=== PATIENT | male | born 1950 | race Caucasian/White ===

== ENCOUNTER → 2016-09-02 | Outpatient (CLI) | payer OTHER ==
[~2016-09-02] MED LIST: /ESOM40CA; AMBI10TA; ASPI81TA83; CIPR500T89 PO; FLUT50SP; LYRI75CA; SOMA350T; TAMS0.4C PO; VESI10TA PO; VIAG100T PO; VICO5TAB16 PO; VITA500047 PO; ZEST20TA4 OR; ZOCO20TA PO; [UNRECOGNIZED DRUG - OTHER]
[2016-09-02 12:27] LABS: ALBUMIN 3.9 GM/DL (3.2-5.2); ALBUMIN/GLOBULIN RATIO 1.18 (1.00-1.93); ALKALINE PHOSPHATASE 80 U/L (45-117); ALT/SGPT 83 U/L (12-78); ANION GAP 10 MEQ/L (8-16); AST/SGOT 42 U/L (15-37); BILIRUBIN,TOTAL 0.4 MG/DL (0.2-1.0); BLOOD UREA NITROGEN 14 MG/DL (7-18); CARBON DIOXIDE LEVEL 29 MEQ/L (21-32); CHLORIDE LEVEL 100 MEQ/L (98-107); CHOLESTEROL LEVEL 209 MG/DL (<200); CREATININE FOR GFR 0.97 MG/DL (0.70-1.30); GLOMERULAR FILTRATION RATE > 60.0 (>49); GLUCOSE, FASTING 147 MG/DL (80-110); POTASSIUM SERUM 4.6 MEQ/L (3.5-5.1); SODIUM LEVEL 139 MEQ/L (136-145); TOTAL PROTEIN 7.2 GM/DL (6.4-8.2); TRIGLYCERIDES LEVEL 203 MG/DL (<150)
== END ==
LOC: M WUC 09:35
PROVIDERS: ATTEND Emergency Medicine
DX: E78.2 Mixed hyperlipidemia (principal); E11.9 Type 2 diabetes mellitus without complications; I10 Essential (primary) hypertension

== ENCOUNTER → 2016-09-21 | Outpatient (CLI) | payer OTHER ==
[~2016-09-21] VITALS: Ht 162.6 cm; Wt 90.7 kg
[~2016-09-21] MED LIST changes: +AMBI10TA PO; +CIAL5TAB PO; +DRIS50002 PO; +FLOM5CAP PO; +LIDOCAINE 2% INJ 100 MG/5 ML SDV (FOR ANES.) As Ordered ONE; +LISI10TA2 PO; +LISI20TA PO; +NS 1,000 ML IV SCH; +PROPOFOL 200 MG/20 ML VIAL As Ordered ONE
--- NOTE | 2016-09-21 10:54 | ROOR ---
Patient Name: Buster James Procedure Date: 09/21/2016 10:32 AM Date of : 1950 Age: 66 Room: [facility] Gender: Male Note Status: Finalized Procedure: Colonoscopy to Cecum + Cold Snare Polypectomy + Hemoclips Indications: Screening for colorectal malignant neoplasm Providers: Tyrel Renteria MD Referring MD: NANETTE HENRY MD Requesting Provider: Medicines: Monitored Anesthesia Care Complications: No immediate complications. Procedure: Pre-Anesthesia Assessment: - The heart rate, respiratory rate, oxygen saturations, blood pressure, adequacy of pulmonary ventilation, and response to care were monitored throughout the procedure. The Colonoscope was introduced through the anus and advanced to the cecum, identified by appendiceal orifice and ileocecal valve. The colonoscopy was performed without difficulty. The patient tolerated the procedure well. The quality of the bowel preparation was excellent. Findings: The perianal and digital rectal examinations were normal. Non-bleeding internal hemorrhoids were found during retroflexion. The hemorrhoids were small and Grade I (internal hemorrhoids that do not prolapse). Scattered small-mouthed diverticula were found in the recto-sigmoid colon, sigmoid colon and descending colon. Two sessile polyps were found in the transverse colon. The polyps were small in size. These polyps were removed with a cold snare. Resection and retrieval were complete. To prevent bleeding after the polypectomy, three hemostatic clips were successfully placed (MR conditional). There was no bleeding at the end of the procedure. The exam was otherwise without abnormality on direct and retroflexion views. Impression: - Non-bleeding internal hemorrhoids. - Diverticulosis in the recto-sigmoid colon, in the sigmoid colon and in the descending colon. - Two small polyps in the transverse colon, removed with a cold snare. Resected and retrieved. Clips (MR conditional) were placed. - The examination was otherwise normal on direct and retroflexion views. - The exam was otherwise normal to the cecum. Recommendation: - Patient has a contact number available for emergencies. The signs and symptoms of potential delayed complications were discussed with the patient. Return to normal activities tomorrow. Written discharge instructions were provided to the patient. - High fiber diet. - Discharge patient to home. - Continue present medications. - Await pathology results. - Telephone GI clinic for pathology results in 1 week. - Repeat colonoscopy for surveillance based on pathology results. - Return to referring physician. - The findings and recommendations were discussed with the patient's family. Tyrel Renteria MD Tyrel Renteria MD 09/21/2016 10:53:55 AM This report has been signed electronically. Number of Addenda: 0 Note Initiated On: 09/21/2016 10:32 AM Estimated Blood Loss: Estimated blood loss: none.
[2016-09-21 11:10] VITALS: BP 135/91
== END ==
LOC: M OPP 09:59
PROVIDERS: ATTEND Internal Medicine Gastroenterology
DX: Z12.11 Encounter for screening for malignant neoplasm of colon (principal); K64.0 First degree hemorrhoids; K57.30 Diverticulosis of large intestine without perforation or abscess without bleeding; D12.3 Benign neoplasm of transverse colon; I10 Essential (primary) hypertension; Z85.51 Personal history of malignant neoplasm of bladder; Z79.82 Long term (current) use of aspirin; Z79.899 Other long term (current) drug therapy; Z88.5 Allergy status to narcotic agent; Z91.040 Latex allergy status

== ENCOUNTER → 2016-11-15 | Outpatient (REF) | payer OTHER ==
[~2016-11-15] MED LIST changes: -LIDOCAINE 2% INJ 100 MG/5 ML SDV (FOR ANES.) As Ordered ONE; -NS 1,000 ML IV SCH; -PROPOFOL 200 MG/20 ML VIAL As Ordered ONE
== END ==
LOC: M SMT 12:55
PROVIDERS: ATTEND Urology
DX: Z85.51 Personal history of malignant neoplasm of bladder (principal)

== ENCOUNTER → 2016-11-18 | Outpatient (REF) | payer OTHER | LOC: M LAB REF 10:41 | PROVIDERS: ATTEND Emergency Medicine | DX: R19.7 Diarrhea, unspecified (principal) ==

== ENCOUNTER → 2017-03-10 | Outpatient (CLI) | payer OTHER ==
[2017-03-10 13:55] LABS: ALBUMIN 3.7 GM/DL (3.2-5.2); ALBUMIN/GLOBULIN RATIO 1.09 (1.00-1.93); ALKALINE PHOSPHATASE 71 U/L (45-117); ALT/SGPT 52 U/L (12-78); ANION GAP 9 MEQ/L (8-16); AST/SGOT 26 U/L (15-37); BILIRUBIN,TOTAL 0.4 MG/DL (0.2-1.0); BLOOD UREA NITROGEN 13 MG/DL (7-18); CALCIUM LEVEL 8.3 MG/DL (8.8-10.2); CARBON DIOXIDE LEVEL 27 MEQ/L (21-32); CHLORIDE LEVEL 104 MEQ/L (98-107); CHOLESTEROL LEVEL 180 MG/DL (<200); CREATININE FOR GFR 0.95 MG/DL (0.70-1.30); GLOMERULAR FILTRATION RATE > 60.0 (>49); GLUCOSE, FASTING 141 MG/DL (80-110); POTASSIUM SERUM 4.4 MEQ/L (3.5-5.1); SODIUM LEVEL 140 MEQ/L (136-145); TOTAL PROTEIN 7.1 GM/DL (6.4-8.2); TRIGLYCERIDES LEVEL 153 MG/DL (<150)
== END ==
LOC: M WUC 08:33
PROVIDERS: ATTEND Emergency Medicine
DX: E11.9 Type 2 diabetes mellitus without complications (principal); I10 Essential (primary) hypertension; E78.2 Mixed hyperlipidemia

== ENCOUNTER → 2017-05-16 | Outpatient (REF) | payer OTHER | LOC: M SMT 13:19 | PROVIDERS: ATTEND Urology | DX: Z85.51 Personal history of malignant neoplasm of bladder (principal) ==

== ENCOUNTER → 2017-05-16 | Outpatient (CLI) | payer OTHER | LOC: M SMT 11:05 | PROVIDERS: ATTEND Urology | DX: Z12.5 Encounter for screening for malignant neoplasm of prostate (principal) | CPT/HCPCS: 36415; G0103 ==

== ENCOUNTER → 2017-09-25 | Outpatient (CLI) | payer OTHER ==
[2017-09-25 13:59] LABS: ALBUMIN 4.1 GM/DL (3.2-5.2); ALBUMIN/GLOBULIN RATIO 1.11 (1.00-1.93); ALKALINE PHOSPHATASE 84 U/L (45-117); ALT/SGPT 56 U/L (12-78); ANION GAP 8 MEQ/L (8-16); AST/SGOT 30 U/L (7-37); BILIRUBIN,TOTAL 0.3 MG/DL (0.2-1.0); BLOOD UREA NITROGEN 13 MG/DL (7-18); CALCIUM LEVEL 8.9 MG/DL (8.8-10.2); CARBON DIOXIDE LEVEL 28 MEQ/L (21-32); CHLORIDE LEVEL 101 MEQ/L (98-107); CHOLESTEROL LEVEL 185 MG/DL (<200); CHOLESTEROL RISK RATIO 2.803 (<5); CREATININE FOR GFR 0.98 MG/DL (0.70-1.30); GLOMERULAR FILTRATION RATE > 60.0 (>49); GLUCOSE, FASTING 136 MG/DL (70-100); HDL CHOLESTEROL 66 MG/DL (>40); LDL CHOLESTEROL 86.6 MG/DL (<100); NON-HDL-C 119 MG/DL; POTASSIUM SERUM 4.5 MEQ/L (3.5-5.1); SODIUM LEVEL 137 MEQ/L (136-145); TOTAL PROTEIN 7.8 GM/DL (6.4-8.2); TRIGLYCERIDES LEVEL 162 MG/DL (<150)
[2017-09-25 14:09] LABS: MALB URINE SIEMENS 7.8 MG/L; MAU/CREAT RATIO 4.9 MCG/MG (0.0-30.0)
[2017-09-25 14:14] LABS: ESTIMATED AVERAGE GLUCOSE 128 MG/DL (60-110); HEMOGLOBIN A1c 6.1 %
[2017-09-25 14:39] LABS: TOTAL 25(OH) VITAMIN D 22.5 NG/ML (30.0-100.0)
== END ==
LOC: M SMT 09:36
DX: E11.9 Type 2 diabetes mellitus without complications (principal); I10 Essential (primary) hypertension; E78.2 Mixed hyperlipidemia
CPT/HCPCS: 80053

== ENCOUNTER → 2018-04-04 | Outpatient (CLI) | payer OTHER ==
[2018-04-04 15:08] LABS: ANION GAP 6 MEQ/L (8-16); BLOOD UREA NITROGEN 14 MG/DL (7-18); CALCIUM LEVEL 8.9 MG/DL (8.8-10.2); CARBON DIOXIDE LEVEL 29 MEQ/L (21-32); CHLORIDE LEVEL 103 MEQ/L (98-107); CHOLESTEROL LEVEL 173 MG/DL (<200); CHOLESTEROL RISK RATIO 3.326 (<5); GLOMERULAR FILTRATION RATE > 60.0 (>49); GLUCOSE, FASTING 120 MG/DL (70-100); HDL CHOLESTEROL 52 MG/DL (>40); LDL CHOLESTEROL 85 MG/DL (<100); NON-HDL-C 121 MG/DL; POTASSIUM SERUM 4.5 MEQ/L (3.5-5.1); SODIUM LEVEL 138 MEQ/L (136-145); TOTAL 25(OH) VITAMIN D 46.3 NG/ML (30.0-100.0); TRIGLYCERIDES LEVEL 182 MG/DL (<150)
[2018-04-04 16:41] LABS: ESTIMATED AVERAGE GLUCOSE 126 MG/DL (60-110)
== END ==
LOC: M SMT 09:01
DX: E55.9 Vitamin D deficiency, unspecified (principal); E78.2 Mixed hyperlipidemia; I10 Essential (primary) hypertension; E11.9 Type 2 diabetes mellitus without complications
CPT/HCPCS: 83036

== ENCOUNTER → 2018-05-08 | Outpatient (REF) | payer OTHER | LOC: M SMT 13:26 | DX: Z85.51 Personal history of malignant neoplasm of bladder (principal) ==

== ENCOUNTER → 2018-05-21 | Outpatient (CLI) | payer OTHER ==
[2018-05-21 13:54] LABS: PSA SCREENING 2.45 NG/ML (< 4.0)
== END ==
LOC: M SMT 08:44
DX: Z12.5 Encounter for screening for malignant neoplasm of prostate (principal)
CPT/HCPCS: G0103

== ENCOUNTER → 2018-09-28 | Outpatient (CLI) | payer MEDICARE, OTHER ==
[~2018-09-28] MED LIST changes: -DRIS50002 PO; +DRIS50003 PO; +FLOM0.4C39 PO; -FLOM5CAP PO
[2018-09-28 09:39] LABS: ALT/SGPT 61 U/L (12-78); BILIRUBIN,TOTAL 0.4 MG/DL (0.2-1.0); BLOOD UREA NITROGEN 17 MG/DL (7-18); CALCIUM LEVEL 8.9 MG/DL (8.8-10.2); CARBON DIOXIDE LEVEL 29 MEQ/L (21-32); CHLORIDE LEVEL 102 MEQ/L (98-107); CHOLESTEROL LEVEL 178 MG/DL (<200); CREATININE FOR GFR 1.06 MG/DL (0.70-1.30); GLOMERULAR FILTRATION RATE > 60.0 (>49); GLUCOSE, FASTING 152 MG/DL (70-100); HDL CHOLESTEROL 57 MG/DL (>40); POTASSIUM SERUM 4.3 MEQ/L (3.5-5.1); SODIUM LEVEL 138 MEQ/L (136-145); TRIGLYCERIDES LEVEL 175 MG/DL (<150)
[2018-09-28 09:40] LABS: ALBUMIN 3.8 GM/DL (3.2-5.2); CHOLESTEROL RISK RATIO 3.122 (<5); LDL CHOLESTEROL 86 MG/DL (<100); NON-HDL-C 121 MG/DL; TOTAL PROTEIN 7.1 GM/DL (6.4-8.2)
[2018-09-28 10:08] LABS: HEMOGLOBIN A1c 6.4 %
== END ==
LOC: M LAB 08:40
PROVIDERS: ATTEND Physician Assistant
DX: E11.69 Type 2 diabetes mellitus with other specified complication (principal)

== ENCOUNTER → 2019-04-29 | Outpatient (CLI) | payer MEDICARE ==
[~2019-04-29] MED LIST changes: -/ESOM40CA; +LISI10TA15 PO; -LISI10TA2 PO; -LISI20TA PO; +LISI20TA19 PO; +NEXI1CAP3
--- NOTE | 2019-04-29 13:41 | REP ---
ULTRASOUND ABDOMINAL AORTA: Real-time sonographic evaluation of the abdominal aorta performed. Study is somewhat limited due to patient body habitus. There is no sonographic evidence of abdominal aortic aneurysm. Maximum AP diameter of the proximal abdominal aorta is 2.2 cm, at the level of the renal artery is 1.5 cm, mid aspect 1.5 cm and distally 1.4 cm. Common iliac arteries are normal in caliber both measuring 1 cm in maximum AP dimension. IMPRESSION: No sonographic evidence of abdominal aortic aneurysm. Electronically Signed by Thien Estrada MD 04/29/2019 11:36 P
== END ==
LOC: M RAD 10:53
PROVIDERS: ATTEND Physician Assistant
DX: Z87.891 Personal history of nicotine dependence (principal)

== ENCOUNTER → 2019-04-30 | Outpatient (CLI) | payer MEDICARE ==
--- NOTE | 2019-04-30 09:38 | REP ---
CT chest without contrast: Low-dose screening exam. History: Personal history of nicotine dependence. Comparison chest x-ray is from July 21, 2015. No comparison chest CT. CT findings: There is minimal linear fibrosis in the right middle lobe and in the lingula. No significant pulmonary nodule is appreciated. No infiltrate is seen. Impression: Lung-RADS category 1 negative. Repeat screening exam suggested 1 year. Electronically Signed by Marquez Alvarado MD 04/30/2019 10:44 A
== END ==
LOC: M RAD 08:02
PROVIDERS: ATTEND Physician Assistant
DX: Z12.2 Encounter for screening for malignant neoplasm of respiratory organs (principal); Z87.891 Personal history of nicotine dependence; J84.10 Pulmonary fibrosis, unspecified

== ENCOUNTER → 2019-07-08 | Outpatient (REF) | payer MEDICARE | LOC: M SMT 19:11 | PROVIDERS: ATTEND Urology | DX: Z85.51 Personal history of malignant neoplasm of bladder (principal) ==

== ENCOUNTER → 2019-07-08 | Outpatient (REF) | payer MEDICARE | LOC: M SMT 12:42 | PROVIDERS: ATTEND Urology | DX: Z85.51 Personal history of malignant neoplasm of bladder (principal) ==

== ENCOUNTER → 2019-07-31 | Outpatient (CLI) | payer MEDICARE ==
[2019-07-31 13:59] LABS: HEMOGLOBIN 15.3 g/dl (13.5-17.5); MEAN CORPUSCULAR HEMOGLOBIN 31.5 pg (27.0-33.0); MEAN CORPUSCULAR HGB CONC 32.6 g/dl (32.0-36.5); MEAN CORPUSCULAR VOLUME 96.7 fl (80.0-96.0); PLATELET COUNT, AUTOMATED 205 10^3/uL (150-450); RED BLOOD COUNT 4.86 10^6/uL (4.30-6.10); WHITE BLOOD COUNT 12.7 10^3/uL (4.0-10.0)
[2019-07-31 14:21] LABS: BLOOD UREA NITROGEN 13 MG/DL (7-18); CALCIUM LEVEL 9.2 MG/DL (8.8-10.2); CARBON DIOXIDE LEVEL 31 MEQ/L (21-32); CHLORIDE LEVEL 100 MEQ/L (98-107); CREATININE FOR GFR 0.97 MG/DL (0.70-1.30); GLOMERULAR FILTRATION RATE > 60.0 (>49); GLUCOSE, FASTING 141 MG/DL (70-100); POTASSIUM SERUM 4.5 MEQ/L (3.5-5.1); SODIUM LEVEL 140 MEQ/L (136-145)
--- NOTE | 2019-08-01 11:22 | REPPI ---
Clinical: Bladder cancer. Preoperative assessment . Comparison: 07/21/2015 . Technique: PA and lateral. Findings: The mediastinum and cardiac silhouette are normal. The lung cannon are clear and without acute consolidation, effusion, or pneumothorax. The skeletal structures are intact and normal. Impression: 1. No acute cardiopulmonary process. Electronically Signed by Primitivo Parks MD 08/01/2019 05:31 A
== END ==
LOC: M PLALAB 09:47
PROVIDERS: ATTEND Urology
DX: C67.9 Malignant neoplasm of bladder, unspecified (principal)

== ENCOUNTER 2019-08-16 13:42 | Day surgery (SDC) | payer MEDICARE ==
[~2019-08-16] VITALS: Ht 162.6 cm; Wt 91.1 kg
[~2019-08-16 13:42] MED LIST changes: +ACETAMINOPHEN 1000MG 100ML IV BTL (OFIRMEV) (J0131 PER 10MG) As Ordered ONE; +LIDOCAINE 2% INJ 100 MG/5 ML SDV (FOR ANES.) As Ordered ONE; +LR 1,000 ML IV ONE; +MIDAZOLAM INJ 2 MG/2 ML VIAL (J2250) As Ordered ONE; +ONDANSETRON 4MG/2ML VIAL (J2405) As Ordered ONE; +dexameTHASONE 4 MG/ML 1ML VIAL (J1100) As Ordered ONE; +fentaNYL 100 MCG/2 ML INJECTION (J3010) As Ordered ONE; +mitoMYcin 40MG VIAL *UROLOGY* (J9280 PER 5MG) INTRAVESIC ONE; +propofoL 200 MG/20 ML VIAL As Ordered ONE
[2019-08-16] MEDS ORDERED: ROCURONIUM BROMIDE 50 MG/5 ML VIAL As Ordered ONE (14:54)
[2019-08-16] MEDS ORDERED: ceFAZolin 2 GM/D5W 50 ML IV BAG (J0690 PER 500MG) As Ordered ONE (15:52)
[2019-08-16] MEDS ORDERED: ESMOLOL INJ 100MG/10ML VIAL As Ordered ONE (15:58)
[2019-08-16] MEDS ORDERED: fentaNYL 100 MCG/2 ML INJECTION (J3010) As Ordered ONE (16:00)
[2019-08-16] MEDS ORDERED: SUGAMMADEX SODIUM 500 MG/5 ML VIAL (BRIDION) As Ordered ONE (16:22)
[2019-08-16] MEDS: oxyCODONE 5MG TAB PO PRN ×2 (16:32→17:10)
[2019-08-16] MEDS ORDERED: oxyCODONE 5MG TAB As Ordered ONE (16:40)
[2019-08-16] MEDS ORDERED: ONDANSETRON 4MG/2ML VIAL (J2405) IV PRN (16:45)
[2019-08-16] MEDS: fentaNYL 100 MCG/2 ML INJECTION (J3010) IV PRN ×4 (16:45→17:07)
[2019-08-16] MEDS ORDERED: LR 1,000 ML IV SCH (16:45)
[2019-08-16] MEDS ORDERED: ACETAMINOPHEN TAB 650MG DOSE (2X325MG) PO PRN (16:45)
[2019-08-16 18:50] VITALS: BP 153/83
--- NOTE | 2019-08-17 11:26 | RO ---
DATE OF PROCEDURE: 08/16/2019 PREPROCEDURE DIAGNOSIS: Bladder cancer. POSTPROCEDURE DIAGNOSIS: Bladder cancer. PROCEDURE: Cystoscopy, transurethral resection of bladder tumor (between 2 and 5 cm), intravesical mitomycin C installation. SURGEON: Chivo Fields MD LICENSING COORDINATOR: None. ANESTHESIA: General. OPERATIVE INDICATIONS: This is a 69-year-old female by history of bladder cancer who on recent office cystoscopy was noted to have a recurrence of low grade cancer in the right lateral wall. He was brought to the operating room today for treatment. DESCRIPTION OF PROCEDURE: The patient was brought to the operating room and general anesthesia was induced. Prophylactic antibiotics were infused. He was then placed in the dorsal lithotomy position and prepped and draped in the usual sterile fashion. At this point, a resectoscope inserted into urethral meatus and advanced to the bladder using a visual obturator. The bladder was then thoroughly examined. The only abnormality seen was a patch of small papillary tumors along the right lateral wall. The gyrus loop then utilized to resect these tumors and then I also fulgurated a large portion in this area as well. The coagulation current was utilized to cauterize the base of resection. Once done, all visible tumors had either been removed or fulgurated. The right ureteral orifice was not involved and therefore was not damaged during this procedure. Once done, all of the tumor specimen was removed, drained out of the bladder and sent off for pathologic analysis. The resectoscope was then removed and then an #18- [place] three-way catheter was inserted into the bladder. The balloon was then filled with 30 mL of water. The irrigation port of the catheter was then plugged and the main outflow port was utilized to instill with 40 mg of mitomycin C into the bladder. Once that was done, the outflow port was plugged and this marked the conclusion of the procedure. The patient was then taken out of the dorsal lithotomy position, awakened from anesthesia and transported to the recovery room in stable condition. ESTIMATED BLOOD LOSS: 5 mL. COMPLICATIONS: None. SPECIMENS: Bladder tumor. PLAN: The patient will keep the mitomycin C in his bladder for one hour in the recovery room. After that point, the mitomycin C will drained out and then the patient will be discharged home with the plan for him to followup in the clinic in about one week for catheter removal and pathology results. JAMEL
== END 2019-08-16 18:55 | disposition home or self-care (01) ==
LOC: M SDC 13:42
PROVIDERS: ATTEND Urology
DX: C67.2 Malignant neoplasm of lateral wall of bladder (principal); I10 Essential (primary) hypertension; N40.0 Benign prostatic hyperplasia without lower urinary tract symptoms; Z79.899 Other long term (current) drug therapy; Z88.5 Allergy status to narcotic agent; Z88.0 Allergy status to penicillin; Z88.8 Allergy status to other drugs, medicaments and biological substances; Z88.1 Allergy status to other antibiotic agents
CPT/HCPCS: 51720; 52235; 88305; J0131; J0690; J1100; J2250; J2405; J3010; J9280

== ENCOUNTER → 2019-09-03 | Outpatient (REF) | payer MEDICARE ==
[~2019-09-03] MED LIST changes: -ACETAMINOPHEN 1000MG 100ML IV BTL (OFIRMEV) (J0131 PER 10MG) As Ordered ONE; -LIDOCAINE 2% INJ 100 MG/5 ML SDV (FOR ANES.) As Ordered ONE; -LR 1,000 ML IV ONE; -MIDAZOLAM INJ 2 MG/2 ML VIAL (J2250) As Ordered ONE; -ONDANSETRON 4MG/2ML VIAL (J2405) As Ordered ONE; -dexameTHASONE 4 MG/ML 1ML VIAL (J1100) As Ordered ONE; -fentaNYL 100 MCG/2 ML INJECTION (J3010) As Ordered ONE; -mitoMYcin 40MG VIAL *UROLOGY* (J9280 PER 5MG) INTRAVESIC ONE; -propofoL 200 MG/20 ML VIAL As Ordered ONE
[2019-09-03 13:58] LABS: AMORPHOUS SEDIMENT LARGE (NEGATIVE); APPEARANCE, URINE TURBID (CLEAR); BACTERIA, URINE AUTO NEGATIVE (NEGATIVE); BILIRUBIN, URINE AUTO NEGATIVE (NEGATIVE); BLOOD, URINE BLOOD NEGATIVE (NEGATIVE); COLOR, URINE YELLOW (YELLOW); GLUCOSE, URINE (UA) AUTO NEGATIVE (NEGATIVE); KETONE, URINE AUTO TRACE mg/dL (NEGATIVE); LEUKOCYTE ESTERASE, URINE AUTO 2+ (NEGATIVE); MUCUS, URINE SMALL (NEGATIVE); NITRITE, URINE AUTO NEGATIVE (NEGATIVE); PROTEIN, URINE AUTO 1+ mg/dL (NEGATIVE); RBC, URINE AUTO 4 /HPF (0-3); SPECIFIC GRAVITY URINE AUTO 1.028 (1.002-1.035); SQUAMOUS EPITHELIAL CELL UR AU 0 /HPF (0-6); UROBILINOGEN, URINE AUTO 0.2 mg/dL (0.0-2.0); WBC, URINE AUTO 13 /HPF (0-3)
== END ==
LOC: M SMT 12:59
PROVIDERS: ATTEND Nurse Practitioner Family
DX: R30.0 Dysuria (principal)

== ENCOUNTER → 2019-11-25 | Outpatient (REF) | payer MEDICARE | LOC: M SMT 16:47 | PROVIDERS: ATTEND Urology | DX: C67.9 Malignant neoplasm of bladder, unspecified (principal) ==

== ENCOUNTER → 2020-02-24 | Outpatient (REF) | payer MEDICARE ==
[~2020-02-24] MED LIST changes: -LISI20TA19 PO; +LISI20TA35 PO
== END ==
LOC: M SMT 06:57
PROVIDERS: ATTEND Urology
DX: C67.9 Malignant neoplasm of bladder, unspecified (principal)
CPT/HCPCS: 52000; 88108; G0463

== ENCOUNTER → 2020-05-19 | Outpatient (CLI) | payer MEDICARE ==
[2020-05-19 10:49] LABS: BASO # 0.1 10^3/uL (0.0-0.2); BASO % 0.7 % (0.0-1.0); EOS # 0.2 10^3/uL (0.0-0.5); EOS % 2.7 % (0.0-3.0); HEMATOCRIT 45.8 % (42.0-52.0); HEMOGLOBIN 15.4 g/dl (13.5-17.5); LYMPH % 24.7 % (24.0-44.0); MEAN CORPUSCULAR HEMOGLOBIN 32.3 pg (27.0-33.0); MEAN CORPUSCULAR HGB CONC 33.6 g/dl (32.0-36.5); MONO # 0.7 10^3/uL (0.0-0.8); MONO % 8.4 % (0.0-5.0); NEUTROPHILS # 5.1 10^3/uL (1.5-8.5); NEUTROPHILS % 62.8 % (36.0-66.0); PLATELET COUNT, AUTOMATED 244 10^3/uL (150-450); RED BLOOD COUNT 4.77 10^6/uL (4.30-6.10); WHITE BLOOD COUNT 8.1 10^3/uL (4.0-10.0)
[2020-05-19 11:06] LABS: HEMOGLOBIN A1c 6.7 %
[2020-05-19 11:25] LABS: ALBUMIN 3.7 GM/DL (3.2-5.2); ALT/SGPT 55 U/L (12-78); BILIRUBIN,TOTAL 0.4 MG/DL (0.2-1.0); BLOOD UREA NITROGEN 16 MG/DL (7-18); CALCIUM LEVEL 9.2 MG/DL (8.8-10.2); CARBON DIOXIDE LEVEL 28 MEQ/L (21-32); CHLORIDE LEVEL 103 MEQ/L (98-107); CHOLESTEROL LEVEL 171 MG/DL (<200); CHOLESTEROL RISK RATIO 2.948 (<5); CREATININE FOR GFR 1.01 MG/DL (0.70-1.30); GLOMERULAR FILTRATION RATE > 60.0 (>49); GLUCOSE, FASTING 157 MG/DL (70-100); HDL CHOLESTEROL 58 MG/DL (>40); LDL CHOLESTEROL 87 MG/DL (<100); NON-HDL-C 113 MG/DL; POTASSIUM SERUM 4.4 MEQ/L (3.5-5.1); SODIUM LEVEL 138 MEQ/L (136-145); TOTAL PROTEIN 7.1 GM/DL (6.4-8.2); TRIGLYCERIDES LEVEL 130 MG/DL (<150)
[2020-05-19 11:27] LABS: TOTAL 25(OH) VITAMIN D 39.5 NG/ML (30.0-100.0)
[2020-05-19 11:33] LABS: MALB URINE SIEMENS 40.4 MG/L; MAU/CREAT RATIO 14.6 MCG/MG (0.0-30.0)
== END ==
LOC: M WUC 09:17
PROVIDERS: ATTEND Physician Assistant
DX: I10 Essential (primary) hypertension (principal); C67.9 Malignant neoplasm of bladder, unspecified; E11.69 Type 2 diabetes mellitus with other specified complication; E55.9 Vitamin D deficiency, unspecified; Z79.899 Other long term (current) drug therapy

== ENCOUNTER → 2020-06-30 | Outpatient (CLI) | payer MEDICARE ==
--- NOTE | 2020-06-30 14:42 | REP ---
INDICATION: H/O NOCOTINE DEPEND. COMPARISON: Comparison CT study April 30, 2019.. TECHNIQUE: Low-dose technique. 3 mm lung window only axial images. FINDINGS: Preliminary digital salt lifter radiograph is unremarkable. Minimal bibasilar linear fibrosis is again noted. No lung mass or significant pulmonary nodule is appreciated. No infiltrate is seen. IMPRESSION: Stable lung RADS category 1 negative findings. Repeat screening study suggested in 1 year. <Electronically signed by Fortunato Alvarado > 06/30/20 [id number]
== END ==
LOC: M RAD 10:43
PROVIDERS: ATTEND Nurse Practitioner Family
DX: Z87.891 Personal history of nicotine dependence (principal)

== ENCOUNTER → 2020-08-10 | Outpatient (REF) | payer MEDICARE | LOC: M SMT 12:44 | PROVIDERS: ATTEND Urology | DX: C67.9 Malignant neoplasm of bladder, unspecified (principal) ==

== ENCOUNTER → 2020-12-15 | Outpatient (CLI) | payer MEDICARE ==
[2020-12-15 20:14] LABS: BLOOD UREA NITROGEN 16 MG/DL (7-18); CALCIUM LEVEL 9.5 MG/DL (8.8-10.2); CARBON DIOXIDE LEVEL 28 MEQ/L (21-32); CHLORIDE LEVEL 99 MEQ/L (98-107); CREATININE FOR GFR 1.07 MG/DL (0.70-1.30); GLOMERULAR FILTRATION RATE > 60.0 (>49); GLUCOSE, FASTING 334 MG/DL (70-100); MAGNESIUM LEVEL 1.8 MG/DL (1.8-2.4); SODIUM LEVEL 135 MEQ/L (136-145)
== END ==
LOC: M WUC 15:14
PROVIDERS: ATTEND Family Medicine
DX: R25.2 Cramp and spasm (principal)

== ENCOUNTER → 2020-12-18 | Outpatient (CLI) | payer MEDICARE ==
[2020-12-18 13:24] LABS: HEMOGLOBIN A1c 9.4 %
== END ==
LOC: M WUC 08:18
PROVIDERS: ATTEND Nurse Practitioner Family
DX: E11.69 Type 2 diabetes mellitus with other specified complication (principal)

== ENCOUNTER → 2020-12-28 | Outpatient (REF) | payer MEDICARE | LOC: M SMT 19:04 | PROVIDERS: ATTEND Urology | DX: C67.9 Malignant neoplasm of bladder, unspecified (principal) ==

== ENCOUNTER → 2021-04-08 | Outpatient (CLI) | payer MEDICARE ==
[2021-04-08 12:33] LABS: MALB URINE SIEMENS 23.4 MG/L; MAU/CREAT RATIO 17.8 MCG/MG (0.0-30.0)
[2021-04-08 12:40] LABS: ALT/SGPT 42 U/L (12-78); BILIRUBIN,TOTAL 0.5 MG/DL (0.2-1.0); BLOOD UREA NITROGEN 17 MG/DL (7-18); CALCIUM LEVEL 9.4 MG/DL (8.8-10.2); CARBON DIOXIDE LEVEL 28 MEQ/L (21-32); CHLORIDE LEVEL 98 MEQ/L (98-107); CHOLESTEROL LEVEL 198 MG/DL (<200); CHOLESTEROL RISK RATIO 2.955 (<5); GLOMERULAR FILTRATION RATE > 60.0 (>49); GLUCOSE, FASTING 150 MG/DL (70-100); HDL CHOLESTEROL 67 MG/DL (>40); NON-HDL-C 131 MG/DL; POTASSIUM SERUM 4.1 MEQ/L (3.5-5.1); SODIUM LEVEL 136 MEQ/L (136-145); TRIGLYCERIDES LEVEL 178 MG/DL (<150)
[2021-04-08 12:41] LABS: ALBUMIN 3.9 GM/DL (3.2-5.2); LDL CHOLESTEROL 95 MG/DL (<100); TOTAL 25(OH) VITAMIN D 40.8 NG/ML (30.0-100.0); TOTAL PROTEIN 7.5 GM/DL (6.4-8.2)
[2021-04-08 13:07] LABS: HEMOGLOBIN A1c 6.3 %
== END ==
LOC: M WUC 09:09
PROVIDERS: ATTEND Nurse Practitioner Family
DX: I10 Essential (primary) hypertension (principal); E11.69 Type 2 diabetes mellitus with other specified complication; E78.2 Mixed hyperlipidemia; E55.9 Vitamin D deficiency, unspecified

== ENCOUNTER 2021-04-27 10:29 | Emergency (ER) | payer MEDICARE ==
[~2021-04-27] VITALS: Ht 162.6 cm; Wt 80.3 kg
--- NOTE | 2021-04-27 11:32 | REP ---
INDICATION: Altered Mental Status COMPARISON: 07/31/2019 TECHNIQUE: Portable AP view of the chest FINDINGS: Subtle right lower lobe airspace disease and bibasilar linear streaky atelectasis noted. No obvious effusion. No pneumothorax. Mediastinum and cardiac silhouette are stable and within normal limits. Skeletal structures demonstrate degenerative changes primarily involving the left shoulder and thoracic spine. IMPRESSION: Suspected basilar atelectasis/infiltrates (right greater than left). <Electronically signed by Primitivo Parks > 04/27/21 [id number]
[2021-04-27 12:26] LABS: VENOUS BASE EXCESS 0.2 (-2.0-2.0); VENOUS HCO3 25.1 MEQ/L (23.0-27.0); VENOUS O2 SATURATION 67.8 % (60.0-80.0); VENOUS PARTIAL PRESSURE CO2 41.5 mmHg (38.0-50.0); VENOUS PH 7.399 UNITS (7.330-7.430); VENOUS STANDARD HCO3 23.8 MEQ/L; VENOUS TOTAL CO2 26.3 MEQ/L (24.0-28.0)
[2021-04-27 12:31] LABS: BASO % 0.5 % (0.0-1.0); HEMATOCRIT 50.1 % (42.0-52.0); HEMOGLOBIN 16.5 g/dl (13.5-17.5); LYMPH % 16.9 % (24.0-44.0); MEAN CORPUSCULAR HEMOGLOBIN 31.1 pg (27.0-33.0); MEAN CORPUSCULAR HGB CONC 32.9 g/dl (32.0-36.5); MEAN CORPUSCULAR VOLUME 94.4 fl (80.0-96.0); MONO # 0.5 10^3/uL (0.0-0.8); MONO % 8.6 % (2.0-8.0); NEUTROPHILS # 4.3 10^3/uL (1.5-8.5); NEUTROPHILS % 72.8 % (36.0-66.0); PLATELET COUNT, AUTOMATED 179 10^3/uL (150-450); RED BLOOD COUNT 5.31 10^6/uL (4.30-6.10); WHITE BLOOD COUNT 5.9 10^3/uL (4.0-10.0)
[2021-04-27 13:09] LABS: RSV AMPLIFICATION NEGATIVE (NEGATIVE)
[2021-04-27 13:13] LABS: OSMOLALITY SERUM 292 MOSM/KG (280-301)
[2021-04-27 13:19] LABS: ALBUMIN 3.3 GM/DL (3.2-5.2); ALT/SGPT 50 U/L (12-78); BILIRUBIN,DIRECT 0.3 MG/DL (0.0-0.2); BILIRUBIN,TOTAL 0.7 MG/DL (0.2-1.0); BLOOD UREA NITROGEN 23 MG/DL (7-18); CALCIUM LEVEL 8.8 MG/DL (8.8-10.2); CARBON DIOXIDE LEVEL 29 MEQ/L (21-32); CHLORIDE LEVEL 99 MEQ/L (98-107); CK-MB VALUE MASS < 1.0 NG/ML (<3.6); CPK CREATINE PHOSPHOKINASE 128 U/L (39-308); CREATININE FOR GFR 1.08 MG/DL (0.70-1.30); GLOMERULAR FILTRATION RATE > 60.0 (>49); GLUCOSE, FASTING 162 MG/DL (70-100); MB/CK RELATIVE INDEX 0.78 (< OR =4); POTASSIUM SERUM 3.7 MEQ/L (3.5-5.1); SODIUM LEVEL 136 MEQ/L (136-145); THYROID STIMULATING HORMONE 0.579 uIU/ML (0.358-3.740); TOTAL PROTEIN 7.4 GM/DL (6.4-8.2); TROPONIN I < 0.02 NG/ML (< 0.10)
[2021-04-27 15:16] VITALS: BP 151/94
[2021-04-27 16:32] VITALS: O2SAT 94
[2021-04-28] MEDS ORDERED: VITA100T59 PO (15:53)
[2021-04-28] MEDS ORDERED: DICL1GEL3 TOP (15:53)
[2021-04-28] MEDS ORDERED: VITA500054 PO (15:53)
[2021-04-28] MEDS ORDERED: HYDR-3363 PO (15:54)
[2021-04-28] MEDS ORDERED: TRAZ-252 PO (15:55)
--- NOTE | 2021-04-28 17:32 | ECGEPIP ---
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
== END 2021-04-27 16:35 | disposition home or self-care (01) ==
LOC: M ED 10:29
DX: U07.1 COVID-19 (principal); Z88.1 Allergy status to other antibiotic agents; Z88.8 Allergy status to other drugs, medicaments and biological substances; Z91.048 Other nonmedicinal substance allergy status; I10 Essential (primary) hypertension; Z79.899 Other long term (current) drug therapy

== ENCOUNTER 2021-04-28 12:35 | Inpatient (IN) | payer MEDICARE ==
[~2021-04-28] VITALS: Ht 162.6 cm; Wt 79.5 kg
[2021-04-28] MEDS: ONDANSETRON 4 MG TAB PO SCH ×3 (06:00→18:00)
[2021-04-28] MEDS: COMBIVENT RESPIMAT 100-20MCG INHALER 4GM INH SCH ×3 (15:20→16:57)
[2021-04-28] MEDS ORDERED: ACETAMINOPHEN 325 MG TAB PO ONE (15:20)
[2021-04-28] MEDS ORDERED: DICL1GEL3 TOP (15:53)
[2021-04-28] MEDS ORDERED: VITA500054 PO (15:53)
[2021-04-28] MEDS ORDERED: VITA100T59 PO (15:53)
[2021-04-28] MEDS ORDERED: HYDR-3363 PO (15:54)
[2021-04-28] MEDS ORDERED: TRAZ-252 PO (15:55)
[2021-04-28] MEDS ORDERED: HOME MED LIST COMPLETE! XX SCH (16:00)
[2021-04-28 16:02] LABS: BASO % 0.6 % (0.0-1.0); HEMATOCRIT 46.3 % (42.0-52.0); HEMOGLOBIN 15.6 g/dl (13.5-17.5); LYMPH # 0.9 10^3/uL (1.5-5.0); LYMPH % 12.2 % (24.0-44.0); MEAN CORPUSCULAR HEMOGLOBIN 31.1 pg (27.0-33.0); MEAN CORPUSCULAR HGB CONC 33.7 g/dl (32.0-36.5); MEAN CORPUSCULAR VOLUME 92.4 fl (80.0-96.0); MONO # 0.5 10^3/uL (0.0-0.8); MONO % 6.3 % (2.0-8.0); NEUTROPHILS # 5.7 10^3/uL (1.5-8.5); NEUTROPHILS % 80.1 % (36.0-66.0); PLATELET COUNT, AUTOMATED 190 10^3/uL (150-450); RED BLOOD COUNT 5.01 10^6/uL (4.30-6.10); WHITE BLOOD COUNT 7.1 10^3/uL (4.0-10.0)
--- NOTE | 2021-04-28 16:16 | REP ---
INDICATION: DYSPNEA/COUGH COMPARISON: 04/27/2021 at 11:17 a.m. TECHNIQUE: Portable AP view of the chest FINDINGS: The mediastinum and cardiac silhouette are stable and within normal limits for portable technique. The lung cannon again demonstrate chronic changes. Superimposed mid to lower lobe airspace disease suspected. No focal consolidation. No effusion. No pneumothorax. Skeletal structures stable.. IMPRESSION: Chronic changes with superimposed mid to lower lobe opacities suspected. <Electronically signed by Primitivo Parks > 04/28/21 [id number]
[2021-04-28 16:39] LABS: ALBUMIN 2.7 GM/DL (3.2-5.2); ALT/SGPT 45 U/L (12-78); BILIRUBIN,DIRECT 0.3 MG/DL (0.0-0.2); BILIRUBIN,TOTAL 0.6 MG/DL (0.2-1.0); BLOOD UREA NITROGEN 29 MG/DL (7-18); CALCIUM LEVEL 8.8 MG/DL (8.8-10.2); CARBON DIOXIDE LEVEL 28 MEQ/L (21-32); CHLORIDE LEVEL 98 MEQ/L (98-107); CK-MB VALUE MASS < 1.0 NG/ML (<3.6); CPK CREATINE PHOSPHOKINASE 115 U/L (39-308); CREATININE FOR GFR 1.08 MG/DL (0.70-1.30); GLOMERULAR FILTRATION RATE > 60.0 (>49); GLUCOSE, FASTING 168 MG/DL (70-100); MB/CK RELATIVE INDEX 0.87 (< OR =4); POTASSIUM SERUM 3.8 MEQ/L (3.5-5.1); SODIUM LEVEL 134 MEQ/L (136-145); TOTAL PROTEIN 6.7 GM/DL (6.4-8.2); TROPONIN I < 0.02 NG/ML (< 0.10)
[2021-04-28 17:19] LABS: ABG BASE EXCESS 2.3 (-2.0-2.0); ABG HCO3 25.2 MEQ/L (22.0-26.0); ABG O2 SATURATION 95.3 % (95.0-99.0); ABG PARTIAL PRESSURE CO2 34.4 mmHg (35.0-45.0); ABG PARTIAL PRESSURE O2 76.1 mmHg (75.0-100.0); ABG STANDARD HCO3 26.4 MEQ/L (22.0-26.0); ABG TOTAL CO2 26.3 MEQ/L (23.0-31.0); ABG pH (ARTERIAL) 7.483 UNITS (7.350-7.450)
--- NOTE | 2021-04-28 17:53 | ECGEPIP ---
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
[2021-04-28] MEDS: dexameTHASONE 4 MG/ML 1ML VIAL (J1100 PER 1MG) IV SCH (18:58)
[2021-04-28] MEDS ORDERED: DEXTROSE 50% 50 ML SYRINGE IV PRN (19:10)
[2021-04-28] MEDS ORDERED: GLUCOSE 4GM CHEW TABLET PO PRN (19:10)
[2021-04-28] MEDS ORDERED: GLUCAGON INJ 1MG VIAL SC PRN (19:10)
--- NOTE | 2021-04-28 19:13 | HPEPDOC ---
[facility] Medical History & Physical Date of Admission Apr 28, 2021 Date of Service: Apr 28, 2021 History and Physical CHIEF COMPLAINT: Increased shortness of breath HISTORY OF PRESENT ILLNESS: Patient is a 71-year-old male with PMH of hypertension, bladder cancer, BPH, insomnia, vitamin D deficiency, prediabetes who presented to [facility] emergency room with the chief complaint of increased dizziness, decreased appetite, lethargy, lightheadedness, diarrhea worsening over the past 12 weeks. The patient was seen in our emergency room on 04/27/2021 and diagnosed with Covid 19. His chest x-ray showed atelectasis and bilateral infiltrates right greater than left but the patient remained stable on room air. He was sent home with a pulse oximeter and told to follow-up with his primary care provider or return if worsened. Over the evening the patient states he became increasingly hypoxic and began having increased diaphoresis with fevers documented at home. He states he also had an episode of loss of consciousness for approximately 1 minute witnessed by his . He denies his commenting on him tremoring, denies tongue biting, loss of bowel or bladder. The patient also documented having O2 saturations in the 70s. Due to all of the above the patient came in for reevaluation. In the emergency room vital signs showed temperature 100 F, pulse 90, respiratory rate 20, blood pressure 113/69, saturating at 8893 percent on 2 L nasal cannula. Off oxygen the patient was going to the low 80s. Worsened with activity. Chest x-ray repeated today was similar to one done yesterday. Labs were essentially unremarkable. Inflammatory labs were ordered. Due to increasing hypoxia and symptoms mentioned above patient was admitted for shortness of breath secondary to Covid 19, rule out superimposed pneumonia. REVIEW OF SYSTEMS: Neg except for mentioned above PAST MEDICAL HISTORY: hypertension, bladder cancer, BPH, insomnia, vitamin D deficiency, prediabetes PAST SURGICAL HISTORY: Bladder surgery, rib removal, saliva gland cyst removal FAMILY HISTORY: Motherthroat cancer, fatherCAD SOCIAL HISTORY: Prior smoker for 20 years. Quit 10 years ago. Social alcohol use, denies drug use. 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 ALLERGIES: Please see below. HOME MEDICATIONS: Please see below. PHYSICAL EXAMINATION: VS: temperature 100 F, pulse 90, respiratory rate 20, blood pressure 113/69, saturating at 8893 percent on 2 L nasal cannula. CONSTITUTIONAL: No acute distress, resting comfortably, AAO x 3 EYES: PERRLA, EOM intact HENT, MOUTH: Normocephalic, atraumatic, moist mucous membranes, NECK: SUPPLE, no JVD, no lymphadenopathy, no carotid bruit CV: Regular rate and rhythm, S1S2 normal, no murmurs/rubs/gallops RESPIRATORY: Decreased BS bilaterally, CTA bilaterally, no rales/rhonchi/wheezes GI: BS positive in 4 quadrants, soft, nontender, nondistended, no rebound or guarding, no organomegaly : Deferred MUSCULOSKELETAL: Normal ROM. No cyanosis, clubbing, swelling, joint deformity, extremity edema INTEGUMENTARY: Intact, no rashes, no lesions, no erythema NEUROLOGIC: Cranial Nerves II-XII are intact, no focal deficits PSYCHIATRIC: Mood and affect are normal LABORATORY DATA: Please see below IMAGING: CXR see chart ASSESSMENT: 71-year-old male with PMH of hypertension, bladder cancer, BPH, insomnia, vitamin D deficiency, prediabetes admitted for shortness of breath secondary to Covid 19, rule out superimposed pneumonia. PLAN: #COVID-19, r/o superimposed PNA -2L NC, desaturations to low 80's at rest, 70's with activity -F/u LDH,fibrinogen, d dimer, procalcitonin, PT/PTT regularly -Dexamethasone, remdesevir, supplemental O2 -Holding off on abx at this time. If procal high, start CAP coverage #hypertension -stable -Resume home meds #N/V likely 2/2 to infection above -zofran PRN #BPH -C/w home meds #bladder cancer hx -F/u with urology o/p #prediabetes -F/u HbA1c, BS 169 -Diabetic diet, FS AC/HS, ISS #DVT px -Lovenox DISPOSITION: Admit inpatient status. Vital Signs Vital Signs Date Time Temp Pulse Resp B/P (MAP) Pulse Ox O2 Delivery O2 Flow Rate FiO2 04/28/21 18:05 92 93 04/28/21 18:00 18 113/69 (84) Nasal Cannula 2.0 04/28/21 12:52 100.0 Laboratory Data Labs 24H Laboratory Tests 2 04/28/21 15:17: Immature Granulocyte % (Auto) 0.8, Neutrophils (%) (Auto) 80.1H, Lymphocytes (%) (Auto) 12.2L, Monocytes (%) (Auto) 6.3, Eosinophils (%) (Auto) 0.0, Basophils (%) (Auto) 0.6, Neutrophils # (Auto) 5.7, Lymphocytes # (Auto) 0.9L, Monocytes # (Auto) 0.5, Eosinophils # (Auto) 0.0, Basophils # (Auto) 0.0, Nucleated Red Blood Cells % (auto) 0.0, Anion Gap 8, Glomerular Filtration Rate > 60.0, Lactic Acid Level 1.9, Calcium Level 8.8, Total Bilirubin 0.6, Direct Bilirubin 0.3H, Aspartate Amino Transf (AST/SGOT) 47H, Alanine Aminotransferase (ALT/SGPT) 45, Alkaline Phosphatase 45, Total Creatine Kinase 115, Creatine Kinase MB < 1.0, Creatine Kinase MB Relative Index 0.87, Troponin I < 0.02, Total Protein 6.7, Albumin 2.7L, Albumin/Globulin Ratio 0.7 04/28/21 16:58: Blood Gas Bicarbonate Standard 26.4H, Arterial Blood pH 7.483H, Arterial Blood Partial Pressure CO2 34.4L, Arterial Blood Partial Pressure O2 76.1, Arterial Blood Total CO2 26.3, Arterial Blood HCO3 25.2, Arterial Blood Base Excess 2.3H, Arterial Blood Oxygen Saturation 95.3 CBC/BMP Laboratory Tests 04/28/21 15:17 Microbiology Microbiology 04/28/21 Blood Culture, Received Pending 04/28/21 Blood Culture, Received Pending Home Medications Scheduled Ascorbic Acid (Vitamin C) 100 Mg Tablet, 100 MG PO DAILY Cholecalciferol (Vitamin D3) (Vitamin D3) 125 Mcg Capsule, 125 MCG PO DAILY Hydroxyzine HCl (Hydroxyzine HCl) 25 Mg Tablet, 25 MG PO DAILY Lisinopril/Hydrochlorothiazide (Lisinopril-Hctz 20-12.5 mg Tab) 1 Tab Tab, 1 TAB PO DAILY Tadalafil (Cialis) 5 Mg Tab, 5 MG PO DAILY Tamsulosin HCl (Flomax) 0.4 Mg Cap, 0.4 MG PO DAILY Scheduled PRN Diclofenac Sodium (Diclofenac Sodium) 1% 100GM Gel..gram., 1 APLCT TOP QID PRN for PAIN LEVEL 1-4 APPLIED TO SHOULDERS Trazodone HCl (Trazodone HCl) 50 Mg Tablet, 50 MG PO QHS PRN for INSOMNIA Allergies Coded Allergies: TAPE (Verified Allergy, Mild, RASH, 09/12/16) ADHESIVE TAPE amoxicillin (Verified Allergy, Unknown, 08/09/19) clavulanic acid (Verified Allergy, Unknown, 08/09/19) lansoprazole (Verified Allergy, Unknown, 08/09/19) codeine (Verified Adverse Reaction, Unknown, headaches, 08/09/19) A-FIB/CHADSVASC A-FIB History Current/History of A-Fib/PAF?: No Current PO Anticoag Therapy: No Age/Risk Factor Scoring CHADSVASC: CHADSVASC Response (Comments) Value Age Risk Factor Age 65-74 years old 1 Gender Risk Factor Male 0 Hx of CHF No 0 Hx of HTN Yes 1 Hx of Stroke/TIA/or VTE No 0 Hx of Diabetes Yes 1 Hx of Vascular Disease No 0 Total 3 Treatment Other anticoagulant ordered: Diana Tam MD Apr 28, 2021 19:13
[2021-04-28 20:14] LABS: BASO % 0.1 % (0.0-1.0); HEMATOCRIT 46.2 % (42.0-52.0); HEMOGLOBIN 15.6 g/dl (13.5-17.5); LYMPH % 12.4 % (24.0-44.0); MEAN CORPUSCULAR HEMOGLOBIN 31.3 pg (27.0-33.0); MEAN CORPUSCULAR HGB CONC 33.8 g/dl (32.0-36.5); MEAN CORPUSCULAR VOLUME 92.6 fl (80.0-96.0); MONO # 0.4 10^3/uL (0.0-0.8); MONO % 5.1 % (2.0-8.0); NEUTROPHILS # 6.5 10^3/uL (1.5-8.5); NEUTROPHILS % 81.8 % (36.0-66.0); PLATELET COUNT, AUTOMATED 182 10^3/uL (150-450); RED BLOOD COUNT 4.99 10^6/uL (4.30-6.10); WHITE BLOOD COUNT 7.9 10^3/uL (4.0-10.0)
[2021-04-28 20:24] LABS: INR 0.88; PROTHROMBIN TIME 12.4 SECONDS (12.7-14.5)
[2021-04-28 20:25] LABS: PARTIAL THROMBOPLASTIN TIME 31.1 SECONDS (25.9-37.0)
[2021-04-28 20:28] LABS: D-DIMER QUANT 1685.6 ng/ml (<500)
[2021-04-28 20:32] LABS: HEMOGLOBIN A1c 6.5 %
[2021-04-28 20:53] LABS: ALBUMIN 2.8 GM/DL (3.2-5.2); ALT/SGPT 45 U/L (12-78); BILIRUBIN,DIRECT 0.3 MG/DL (0.0-0.2); BILIRUBIN,TOTAL 0.7 MG/DL (0.2-1.0); BLOOD UREA NITROGEN 32 MG/DL (7-18); C REACTIVE PROTEIN QUANTITATIV 9.91 MG/DL (0.00-0.30); CALCIUM LEVEL 8.9 MG/DL (8.8-10.2); CARBON DIOXIDE LEVEL 29 MEQ/L (21-32); CHLORIDE LEVEL 97 MEQ/L (98-107); CPK CREATINE PHOSPHOKINASE 106 U/L (39-308); CREATININE FOR GFR 1.24 MG/DL (0.70-1.30); FERRITIN 3123 NG/ML (26-388); GLOMERULAR FILTRATION RATE > 60.0 (>49); GLUCOSE, FASTING 183 MG/DL (70-100); LDH LACTATE DEHYDROGENASE 373 U/L (87-241); MAGNESIUM LEVEL 2.4 MG/DL (1.8-2.4); NT-PRO BNP 25 PG/ML (<125); POTASSIUM SERUM 3.8 MEQ/L (3.5-5.1); SODIUM LEVEL 133 MEQ/L (136-145); TOTAL PROTEIN 6.9 GM/DL (6.4-8.2); TROPONIN I < 0.02 NG/ML (< 0.10)
[2021-04-28] MEDS ORDERED: REMDESIVIR 200 MG in NS 250 ML IV ONE (21:00)
[2021-04-28] MEDS: HumaLOG INSULIN (NovoLOG) PER UNIT SC SCH (21:00)
[2021-04-28] MEDS ORDERED: SODIUM CHLORIDE 0.9% INJ 10 ML SYR IV ONE (22:00)
[2021-04-29] MEDS: ONDANSETRON 4 MG TAB PO SCH ×2 (09:26)
[2021-04-29 09:49] LABS: HEMATOCRIT 48.8 % (42.0-52.0); HEMOGLOBIN 16.2 g/dl (13.5-17.5); MEAN CORPUSCULAR HEMOGLOBIN 30.8 pg (27.0-33.0); MEAN CORPUSCULAR HGB CONC 33.2 g/dl (32.0-36.5); MEAN CORPUSCULAR VOLUME 92.8 fl (80.0-96.0); PLATELET COUNT, AUTOMATED 226 10^3/uL (150-450); RED BLOOD COUNT 5.26 10^6/uL (4.30-6.10); WHITE BLOOD COUNT 7.4 10^3/uL (4.0-10.0)
[2021-04-29] MEDS: HumaLOG INSULIN (NovoLOG) PER UNIT SC SCH ×4 (10:22→21:00)
[2021-04-29 10:23] LABS: ALBUMIN 2.7 GM/DL (3.2-5.2); ALT/SGPT 42 U/L (12-78); BILIRUBIN,TOTAL 0.5 MG/DL (0.2-1.0); BLOOD UREA NITROGEN 25 MG/DL (7-18); CALCIUM LEVEL 9.4 MG/DL (8.8-10.2); CARBON DIOXIDE LEVEL 30 MEQ/L (21-32); CHLORIDE LEVEL 99 MEQ/L (98-107); CREATININE FOR GFR 1.02 MG/DL (0.70-1.30); FERRITIN 3180 NG/ML (26-388); GLOMERULAR FILTRATION RATE > 60.0 (>49); GLUCOSE, FASTING 190 MG/DL (70-100); POTASSIUM SERUM 4.1 MEQ/L (3.5-5.1); SODIUM LEVEL 133 MEQ/L (136-145); TOTAL PROTEIN 7.9 GM/DL (6.4-8.2)
[2021-04-29] MEDS: dexameTHASONE 4 MG/ML 1ML VIAL (J1100 PER 1MG) IV SCH (10:49)
[2021-04-29] MEDS: hydroCHLOROthiazide 12.5 MG CAPSULE PO SCH (10:49)
[2021-04-29] MEDS: TAMSULOSIN 0.4 MG CAP PO SCH (10:49)
[2021-04-29] MEDS: ENOXAPARIN 40MG/0.4ML SYRINGE (J1650 PER 10MG) SC SCH (10:50)
[2021-04-29 13:08] VITALS: BP 114/68
--- NOTE | 2021-04-29 17:27 | IPNPDOC ---
Date Seen The patient was seen on 04/29/21. Progress Note SUBJECTIVE: States to feel about the same as admission. Slightly tachycardic but febrile, added tylenol. Denies incr SOB, chest pain, lightheadedness, fevers. OBJECTIVE: VITAL SIGNS: Please see below PHYSICAL EXAMINATION: VS: See below CONSTITUTIONAL: No acute distress, resting comfortably, AAO x 3 EYES: PERRLA, EOM intact HENT, MOUTH: Normocephalic, atraumatic, moist mucous membranes NECK: SUPPLE, no JVD, no lymphadenopathy, no carotid bruit CV: Regular rate and rhythm, S1S2 normal, no murmurs/rubs/gallops RESPIRATORY: Decreased BS bilaterally, CTA bilaterally, no rales/rhonchi/wheezes GI: BS positive in 4 quadrants, soft, nontender, nondistended, no rebound or guarding, no organomegaly : Deferred MUSCULOSKELETAL: Normal ROM. No cyanosis, clubbing, swelling, joint deformity, extremity edema INTEGUMENTARY: Intact, no rashes, no lesions, no erythema NEUROLOGIC: Cranial Nerves II-XII are intact, no focal deficits PSYCHIATRIC: Mood and affect are normal LABORATORY DATA: Please see below IMAGING: CXR see chart ASSESSMENT: 71-year-old male with PMH of hypertension, bladder cancer, BPH, insomnia, vitamin D deficiency, prediabetes admitted for shortness of breath secondary to Covid 19, rule out superimposed pneumonia. PLAN: #COVID-19 -Low procalcitonin so no longer suspecting superimposed PNA -2L NC, desaturations continue with activity to 80's -Febrile today, tylenol added -F/u LDH,fibrinogen, d dimer, procalcitonin, PT/PTT regularly -Dexamethasone, remdesevir, supplemental O2 #hypertension -stable -Resume home meds #BPH -C/w home meds #bladder cancer hx -F/u with urology o/p #prediabetes -HbA1c 6.5 -Diabetic diet, FS AC/HS, ISS #DVT px -Lovenox DISPOSITION: Admitted as inpatient status. VS, I&O, 24H, Fishbone Vital Signs/I&O Vital Signs Date Time Temp Pulse Resp B/P (MAP) Pulse Ox O2 Delivery O2 Flow Rate FiO2 04/29/21 13:08 100.2 102 19 114/68 (83) 90 Nasal Cannula 2.0 I&O- Last 24 Hours up to 6 AM 04/29/21 06:00 Intake Total 250 ml Balance 250 ml Laboratory Data 24H LABS Laboratory Tests 2 04/28/21 20:03: Immature Granulocyte % (Auto) 0.6, Neutrophils (%) (Auto) 81.8H, Lymphocytes (%) (Auto) 12.4L, Monocytes (%) (Auto) 5.1, Eosinophils (%) (Auto) 0.0, Basophils ( %) (Auto) 0.1, Neutrophils # (Auto) 6.5, Lymphocytes # (Auto) 1.0L, Monocytes # (Auto) 0.4, Eosinophils # (Auto) 0.0, Basophils # (Auto) 0.0, Nucleated Red Blood Cells % (auto) 0.0, Prothrombin Time 12.4, Prothromb Time International Ratio 0.88, Activated Partial Thromboplast Time 31.1, Fibrinogen 565H, D-Dimer, Quantitative 1685.60H, Anion Gap 7L, Glomerular Filtration Rate > 60.0, Estimated Mean Plasma Glucose 140H, Hemoglobin A1c 6.5, Calcium Level 8.9, Magnesium Level 2.4, Ferritin 3123H, Total Bilirubin 0.7, Direct Bilirubin 0.3H, Aspartate Amino Transf (AST/SGOT) 45H, Alanine Aminotransferase (ALT/SGPT) 45, Alkaline Phosphatase 46, Lactate Dehydrogenase 373H, Total Creatine Kinase 106, Troponin I < 0.02, C-Reactive Protein, Quantitative 9.91H, LY-Asd-B-Type Natriuretic Peptide 25, Total Protein 6.9, Albumin 2.8L, Albumin/Globulin Ratio 0.7, Procalcitonin <0.05 04/29/21 08:51: D-Dimer, Quantitative 1567.13H 04/29/21 09:30: Nucleated Red Blood Cells % (auto) 0.0, Anion Gap 4L, Glomerular Filtration Rate > 60.0, Calcium Level 9.4, Ferritin 3180H, Total Bilirubin 0.5, Aspartate Amino Transf (AST/SGOT) 43H, Alanine Aminotransferase (ALT/SGPT) 42, Alkaline Phosphatase 48, C-Reactive Protein, Quantitative 9.70H, Total Protein 7.9, Albumin 2.7L, Albumin/Globulin Ratio 0.5 04/29/21 12:35: Bedside Glucose (Misc Panel) 236H 04/29/21 17:09: Bedside Glucose (Misc Panel) 165H CBC/BMP Laboratory Tests 04/28/21 20:03 04/29/21 09:30 Microbiology Microbiology 04/28/21 Blood Culture - Preliminary, Resulted No growth after 24 hours . All specim... 04/28/21 Blood Culture - Preliminary, Resulted No growth after 24 hours . All specim... Diana Davis MD Apr 29, 2021 17:27
[2021-04-29 20:00] VITALS: O2SAT 93
[2021-04-29 21:38] VITALS: BP 99/56
[2021-04-29] MEDS: REMDESIVIR 100 MG in NS 250 ML IV SCH (22:56)
[2021-04-29] MEDS: SODIUM CHLORIDE 0.9% INJ 10 ML SYR IV SCH (22:58)
[2021-04-30] VITALS (11 sets, daily range): BP systolic 99–131; BP diastolic 55–71; O2SAT 86–97
[2021-04-30] MEDS ORDERED: LEVEMIR (INSULIN DETEMIR) 1 UNITS/0.01ML SC SCH (09:00)
[2021-04-30 09:19] LABS: INR 0.96; PROTHROMBIN TIME 13.2 SECONDS (12.7-14.5)
--- NOTE | 2021-04-30 09:22 | REP ---
INDICATION: worsening O2 demand. COMPARISON: Comparison chest x-ray April 28, 2021. TECHNIQUE: Portable upright AP chest radiograph. FINDINGS: There are bibasilar infiltrates which are more prominent on April 27, 2021. There radiographically unchanged from the most recent prior study. Heart is not enlarged. Pleural angles are sharp. No acute bony abnormality. IMPRESSION: Bibasilar infiltrates essentially unchanged radiographically from April 28, 2021. <Electronically signed by Fortunato Alvarado > 04/30/21 [id number]
[2021-04-30 09:23] LABS: ALBUMIN 2.4 GM/DL (3.2-5.2); ALT/SGPT 35 U/L (12-78); BILIRUBIN,DIRECT 0.2 MG/DL (0.0-0.2); BILIRUBIN,TOTAL 0.5 MG/DL (0.2-1.0); CPK CREATINE PHOSPHOKINASE 110 U/L (39-308); FERRITIN 2774 NG/ML (26-388); LDH LACTATE DEHYDROGENASE 385 U/L (87-241); NT-PRO BNP 56 PG/ML (<125); TROPONIN I < 0.02 NG/ML (< 0.10)
[2021-04-30] MEDS: hydroCHLOROthiazide 12.5 MG CAPSULE PO SCH (09:27)
[2021-04-30] MEDS: TAMSULOSIN 0.4 MG CAP PO SCH (09:29)
[2021-04-30] MEDS: dexameTHASONE 4 MG/ML 1ML VIAL (J1100 PER 1MG) IV SCH (09:29)
[2021-04-30] MEDS: HumaLOG INSULIN (NovoLOG) PER UNIT SC SCH ×4 (09:31→21:00)
[2021-04-30] MEDS: ENOXAPARIN 40MG/0.4ML SYRINGE (J1650 PER 10MG) SC SCH (09:34)
[2021-04-30] MEDS: ACETAMINOPHEN TAB 650MG DOSE (2X325MG) PO PRN (11:32)
[2021-04-30 14:09] LABS: MYCOPLASMA PNEUMONIAE IgG 155 U/mL (0-99); MYCOPLASMA PNEUMONIAE IgM 1781 U/mL (0-769)
--- NOTE | 2021-04-30 17:48 | IPNPDOC ---
Date Seen The patient was seen on 04/30/21. Progress Note SUBJECTIVE: Incr O2 demand over 24 hours, started baricitinib today. Denies incr chest pain, lightheadedness, fevers. OBJECTIVE: VITAL SIGNS: Please see below PHYSICAL EXAMINATION: VS: See below CONSTITUTIONAL: No acute distress, resting comfortably, AAO x 3 EYES: PERRLA, EOM intact HENT, MOUTH: Normocephalic, atraumatic, moist mucous membranes NECK: SUPPLE, no JVD, no lymphadenopathy, no carotid bruit CV: Regular rate and rhythm, S1S2 normal, no murmurs/rubs/gallops RESPIRATORY: Decreased BS bilaterally, no rales/rhonchi/wheezes GI: BS positive in 4 quadrants, soft, nontender, nondistended, no rebound or guarding, no organomegaly : Deferred MUSCULOSKELETAL: Normal ROM. No cyanosis, clubbing, swelling, joint deformity, extremity edema INTEGUMENTARY: Intact, no rashes, no lesions, no erythema NEUROLOGIC: Cranial Nerves II-XII are intact, no focal deficits PSYCHIATRIC: Mood and affect are normal LABORATORY DATA: Please see below IMAGING: CXR 04/30/21: Bibasilar infiltrates essentially unchanged radiographically from April 28, 2021. ASSESSMENT: 71-year-old male with PMH of hypertension, bladder cancer, BPH, insomnia, vitamin D deficiency, prediabetes admitted for shortness of breath secondary to Covid 19, rule out superimposed pneumonia. PLAN: #COVID-19 -Worsening O2 demand, on 10 L NC -Low procalcitonin so no longer suspecting superimposed PNA -F/u LDH,fibrinogen, d dimer, procalcitonin, PT/PTT regularly -Dexamethasone, remdesevir, and added baricitinib today. #hypertension -stable -Resume home meds #BPH -C/w home meds #bladder cancer hx -F/u with urology o/p #prediabetes -BS increased likely 2/2 to steroids -HbA1c 6.5 -Added levemir daily, c/w diabetic diet, FS AC/HS, ISS #DVT px -Lovenox DISPOSITION: Admitted as inpatient status. Plan is discharge home when medically improved VS, I&O, 24H, Fishbone Vital Signs/I&O Vital Signs Date Time Temp Pulse Resp B/P (MAP) Pulse Ox O2 Delivery O2 Flow Rate FiO2 04/30/21 17:42 96.5 74 19 131/70 (90) 94 Nasal Cannula 9.0 I&O- Last 24 Hours up to 6 AM 04/30/21 06:00 Output Total 125 ml Balance -125 ml Laboratory Data 24H LABS Laboratory Tests 2 04/29/21 21:44: Bedside Glucose (Misc Panel) 222H 04/30/21 06:18: Bedside Glucose (Misc Panel) 219H 04/30/21 07:49: Prothrombin Time 13.2, Prothromb Time International Ratio 0.96, Activated Partial Thromboplast Time 38.0, Fibrinogen 589H, Ferritin 2774H, Total Bilirubin 0.5, Direct Bilirubin 0.2, Aspartate Amino Transf (AST/SGOT) 34, Alanine Aminotransferase (ALT/SGPT) 35, Alkaline Phosphatase 43L, Lactate Dehydrogenase 385H, Total Creatine Kinase 110, Troponin I < 0.02, JA-Aoz-U-Type Natriuretic Peptide 56, Total Protein 7.0, Albumin 2.4L, Albumin/Globulin Ratio 0.5, Procalcitonin <0.05 04/30/21 11:32: Bedside Glucose (Misc Panel) 185H 04/30/21 17:09: Bedside Glucose (Misc Panel) 247H Microbiology Microbiology 04/28/21 Blood Culture - Preliminary, Resulted No Growth after 48 hours. All Specime... 04/28/21 Blood Culture - Preliminary, Resulted No Growth after 48 hours. All Specime... Diana Davis MD Apr 30, 2021 17:48
[2021-04-30] MEDS: BARICITINIB 2MG TABLET (OLUMIANT) FOR EUA PO SCH (18:19)
[2021-04-30] MEDS: REMDESIVIR 100 MG in NS 250 ML IV SCH (22:30)
[2021-04-30] MEDS: SODIUM CHLORIDE 0.9% INJ 10 ML SYR IV SCH (22:30)
[2021-05-01] VITALS (10 sets, daily range): BP systolic 115–136; BP diastolic 66–75; O2SAT 90–98
[2021-05-01 07:55] LABS: HEMATOCRIT 42.9 % (42.0-52.0); HEMOGLOBIN 14.6 g/dl (13.5-17.5); MEAN CORPUSCULAR HEMOGLOBIN 31.5 pg (27.0-33.0); MEAN CORPUSCULAR VOLUME 92.7 fl (80.0-96.0); PLATELET COUNT, AUTOMATED 190 10^3/uL (150-450); RED BLOOD COUNT 4.63 10^6/uL (4.30-6.10); WHITE BLOOD COUNT 7.4 10^3/uL (4.0-10.0)
[2021-05-01 08:41] LABS: ALBUMIN 2.3 GM/DL (3.2-5.2); ALT/SGPT 33 U/L (12-78); BILIRUBIN,TOTAL 0.5 MG/DL (0.2-1.0); BLOOD UREA NITROGEN 26 MG/DL (7-18); C REACTIVE PROTEIN QUANTITATIV 2.74 MG/DL (0.00-0.30); CALCIUM LEVEL 8.7 MG/DL (8.8-10.2); CARBON DIOXIDE LEVEL 28 MEQ/L (21-32); CHLORIDE LEVEL 100 MEQ/L (98-107); FERRITIN 2278 NG/ML (26-388); GLOMERULAR FILTRATION RATE > 60.0 (>49); GLUCOSE, FASTING 160 MG/DL (70-100); POTASSIUM SERUM 3.9 MEQ/L (3.5-5.1); SODIUM LEVEL 135 MEQ/L (136-145); TOTAL PROTEIN 6.2 GM/DL (6.4-8.2)
[2021-05-01] MEDS ORDERED: LEVEMIR (INSULIN DETEMIR) 1 UNITS/0.01ML SC SCH (09:00)
[2021-05-01] MEDS: HumaLOG INSULIN (NovoLOG) PER UNIT SC SCH ×4 (09:15→21:00)
[2021-05-01] MEDS: TAMSULOSIN 0.4 MG CAP PO SCH (09:16)
[2021-05-01] MEDS: ENOXAPARIN 40MG/0.4ML SYRINGE (J1650 PER 10MG) SC SCH (09:16)
[2021-05-01] MEDS: dexameTHASONE 4 MG/ML 1ML VIAL (J1100 PER 1MG) IV SCH (09:16)
[2021-05-01] MEDS: hydroCHLOROthiazide 12.5 MG CAPSULE PO SCH (09:16)
[2021-05-01] MEDS: BARICITINIB 2MG TABLET (OLUMIANT) FOR EUA PO SCH (09:16)
[2021-05-01] MEDS: ACETAMINOPHEN TAB 650MG DOSE (2X325MG) PO PRN (11:51)
--- NOTE | 2021-05-01 17:59 | IPNPDOC ---
Date Seen The patient was seen on 05/01/21. Progress Note SUBJECTIVE: No increased SOB. Denies incr chest pain, lightheadedness, fevers. OBJECTIVE: VITAL SIGNS: Please see below PHYSICAL EXAMINATION: VS: See below CONSTITUTIONAL: No acute distress, resting comfortably, AAO x 3 EYES: PERRLA, EOM intact HENT, MOUTH: Normocephalic, atraumatic, moist mucous membranes NECK: SUPPLE, no JVD, no lymphadenopathy, no carotid bruit CV: Regular rate and rhythm, S1S2 normal, no murmurs/rubs/gallops RESPIRATORY: Decreased BS bilaterally, no rales/rhonchi/wheezes GI: BS positive in 4 quadrants, soft, nontender, nondistended, no rebound or guarding, no organomegaly : Deferred MUSCULOSKELETAL: Normal ROM. No cyanosis, clubbing, swelling, joint deformity, extremity edema INTEGUMENTARY: Intact, no rashes, no lesions, no erythema NEUROLOGIC: Cranial Nerves II-XII are intact, no focal deficits PSYCHIATRIC: Mood and affect are normal LABORATORY DATA: Please see below IMAGING: CXR 04/30/21: Bibasilar infiltrates essentially unchanged radiographically from April 28, 2021. ASSESSMENT: 71-year-old male with PMH of hypertension, bladder cancer, BPH, insomnia, vitamin D deficiency, prediabetes admitted for shortness of breath secondary to Covid 19, rule out superimposed pneumonia. PLAN: #COVID-19 -92-93% on 8 L NC- slowly improving -Low procalcitonin, not longer suspecting superimposed PNA -F/u LDH,fibrinogen, d dimer, procalcitonin, PT/PTT regularly -Dexamethasone, remdesevir, baricitinib (Day 2) today. #hypertension -stable -Resume home meds #BPH -C/w home meds #bladder cancer hx -F/u with urology o/p #prediabetes, worsening hyperglycemia likely 2/2 to steroids -BS > 200 -HbA1c 6.5 -Increased levemir daily, c/w diabetic diet, FS AC/HS, ISS #DVT px -Lovenox DISPOSITION: Admitted as inpatient status. Plan is discharge home when medically improved VS, I&O, 24H, Fishbone Vital Signs/I&O Vital Signs Date Time Temp Pulse Resp B/P (MAP) Pulse Ox O2 Delivery O2 Flow Rate FiO2 05/01/21 14:00 96.9 75 18 136/71 (92) 99 High Flow Cannula 8.0 I&O- Last 24 Hours up to 6 AM 05/01/21 06:00 Intake Total 650 ml Output Total 525 ml Balance 125 ml Laboratory Data 24H LABS Laboratory Tests 2 04/30/21 20:35: Bedside Glucose (Misc Panel) 242H 05/01/21 07:14: Nucleated Red Blood Cells % (auto) 0.0, D-Dimer, Quantitative 915.65H, Anion Gap 7L, Glomerular Filtration Rate > 60.0, Calcium Level 8.7L, Ferritin 2278H, Total Bilirubin 0.5, Aspartate Amino Transf (AST/SGOT) 32, Alanine Aminotransferase (ALT/SGPT) 33, Alkaline Phosphatase 44L, C-Reactive Protein, Quantitative 2.74H, Total Protein 6.2L, Albumin 2.3L, Albumin/Globulin Ratio 0.6 05/01/21 11:50: Bedside Glucose (Misc Panel) 204H 05/01/21 16:51: Bedside Glucose (Misc Panel) 201H CBC/BMP Laboratory Tests 05/01/21 07:14 Microbiology Microbiology 04/28/21 Blood Culture - Preliminary, Resulted No Growth after 72 hours. All specime... 04/28/21 Blood Culture - Preliminary, Resulted No Growth after 72 hours. All specime... Diana Davis MD May 01, 2021 17:59
[2021-05-01] MEDS: SODIUM CHLORIDE 0.9% INJ 10 ML SYR IV SCH (21:24)
[2021-05-01] MEDS: REMDESIVIR 100 MG in NS 250 ML IV SCH (21:24)
[2021-05-02] VITALS (11 sets, daily range): BP systolic 119–143; BP diastolic 69–82; O2SAT 89–97
[2021-05-02] MEDS: dexameTHASONE 4 MG/ML 1ML VIAL (J1100 PER 1MG) IV SCH (08:33)
[2021-05-02] MEDS: ENOXAPARIN 40MG/0.4ML SYRINGE (J1650 PER 10MG) SC SCH (08:34)
[2021-05-02] MEDS: hydroCHLOROthiazide 12.5 MG CAPSULE PO SCH (08:34)
[2021-05-02] MEDS: LEVEMIR (INSULIN DETEMIR) 1 UNITS/0.01ML SC SCH (08:34)
[2021-05-02] MEDS: HumaLOG INSULIN (NovoLOG) PER UNIT SC SCH ×4 (08:34→21:00)
[2021-05-02] MEDS: TAMSULOSIN 0.4 MG CAP PO SCH (08:35)
[2021-05-02] MEDS: BARICITINIB 2MG TABLET (OLUMIANT) FOR EUA PO SCH (08:37)
[2021-05-02 08:46] LABS: INR 0.99; PROTHROMBIN TIME 13.5 SECONDS (12.7-14.5)
[2021-05-02 08:47] LABS: PARTIAL THROMBOPLASTIN TIME 38.7 SECONDS (25.9-37.0)
[2021-05-02 08:58] LABS: ALBUMIN 2.4 GM/DL (3.2-5.2); ALT/SGPT 36 U/L (12-78); BILIRUBIN,DIRECT 0.3 MG/DL (0.0-0.2); BILIRUBIN,TOTAL 0.6 MG/DL (0.2-1.0); CPK CREATINE PHOSPHOKINASE 61 U/L (39-308); FERRITIN 1878 NG/ML (26-388); LDH LACTATE DEHYDROGENASE 429 U/L (87-241); NT-PRO BNP 244 PG/ML (<125); TOTAL PROTEIN 6.3 GM/DL (6.4-8.2); TROPONIN I < 0.02 NG/ML (< 0.10)
--- NOTE | 2021-05-02 15:47 | IPNPDOC ---
Date Seen The patient was seen on 05/02/21. Progress Note SUBJECTIVE: Decreasing O2 demand, currently on 7 L HFNC saturating well. Denies incr chest pain, lightheadedness, fevers. OBJECTIVE: VITAL SIGNS: Please see below PHYSICAL EXAMINATION: VS: See below CONSTITUTIONAL: No acute distress, resting comfortably, AAO x 3 EYES: PERRLA, EOM intact HENT, MOUTH: Normocephalic, atraumatic, moist mucous membranes NECK: SUPPLE, no JVD, no lymphadenopathy, no carotid bruit CV: Regular rate and rhythm, S1S2 normal, no murmurs/rubs/gallops RESPIRATORY: Decreased BS bilaterally, no rales/rhonchi/wheezes GI: BS positive in 4 quadrants, soft, nontender, nondistended, no rebound or guarding, no organomegaly : Deferred MUSCULOSKELETAL: Normal ROM. No cyanosis, clubbing, swelling, joint deformity, extremity edema INTEGUMENTARY: Intact, no rashes, no lesions, no erythema NEUROLOGIC: Cranial Nerves II-XII are intact, no focal deficits PSYCHIATRIC: Mood and affect are normal LABORATORY DATA: Please see below IMAGING: CXR 04/30/21: Bibasilar infiltrates essentially unchanged radiographically from April 28, 2021. ASSESSMENT: 71-year-old male with PMH of hypertension, bladder cancer, BPH, insomnia, vitamin D deficiency, prediabetes admitted for shortness of breath secondary to Covid 19, rule out superimposed pneumonia. PLAN: #COVID-19 -92-93% on 7 L NC- slowly improving -Low procalcitonin, not suspecting superimposed PNA -F/u LDH,fibrinogen, d dimer, procalcitonin, PT/PTT regularly -Dexamethasone (Day4) , remdesevir (Day4) , baricitinib (Day 3) today. #hypertension -stable -Resume home meds #BPH -C/w home meds #bladder cancer hx -F/u with urology o/p #prediabetes, worsening hyperglycemia likely 2/2 to steroids -BS > 200 -HbA1c 6.5 -Increased levemir daily, c/w diabetic diet, FS AC/HS, ISS #DVT px -Lovenox DISPOSITION: Admitted as inpatient status. Plan is discharge home when medically improved VS, I&O, 24H, Fishbone Vital Signs/I&O Vital Signs Date Time Temp Pulse Resp B/P (MAP) Pulse Ox O2 Delivery O2 Flow Rate FiO2 05/02/21 14:00 96.9 80 22 119/71 (87) 96 High Flow Cannula 7.0 I&O- Last 24 Hours up to 6 AM 05/02/21 06:00 Intake Total 1430 ml Output Total 550 ml Balance 880 ml Laboratory Data 24H LABS Laboratory Tests 2 05/01/21 16:51: Bedside Glucose (Misc Panel) 201H 05/01/21 20:31: Bedside Glucose (Misc Panel) 239H 05/02/21 06:21: Bedside Glucose (Misc Panel) 157H 05/02/21 07:44: Prothrombin Time 13.5, Prothromb Time International Ratio 0.99, Activated Partial Thromboplast Time 38.7H, Fibrinogen 423, Ferritin 1878H, Total Bilirubin 0.6, Direct Bilirubin 0.3H, Aspartate Amino Transf (AST/SGOT) 36, Alanine Aminotransferase (ALT/SGPT) 36, Alkaline Phosphatase 45, Lactate Dehydrogenase 429H, Total Creatine Kinase 61, Troponin I < 0.02, HM-Nah-C-Type Natriuretic Peptide 244H, Total Protein 6.3L, Albumin 2.4L, Albumin/Globulin Ratio 0.6 05/02/21 11:47: Bedside Glucose (Misc Panel) 262H Microbiology Microbiology 04/28/21 Blood Culture - Preliminary, Resulted No Growth after 72 hours. All specime... 04/28/21 Blood Culture - Preliminary, Resulted No Growth after 72 hours. All specime... Diana Davis MD May 02, 2021 15:47
[2021-05-02] MEDS: REMDESIVIR 100 MG in NS 250 ML IV SCH (21:15)
[2021-05-02] MEDS: SODIUM CHLORIDE 0.9% INJ 10 ML SYR IV SCH (22:28)
[2021-05-03] VITALS: O2SAT 99
[2021-05-03 04:00] VITALS: BP 153/81; O2SAT 96
[2021-05-03] MEDS: HumaLOG INSULIN (NovoLOG) PER UNIT SC SCH ×4 (08:57→22:43)
[2021-05-03] MEDS: LEVEMIR (INSULIN DETEMIR) 1 UNITS/0.01ML SC SCH (08:57)
[2021-05-03] MEDS: hydroCHLOROthiazide 12.5 MG CAPSULE PO SCH (08:58)
[2021-05-03] MEDS: BARICITINIB 2MG TABLET (OLUMIANT) FOR EUA PO SCH (08:59)
[2021-05-03] MEDS: ENOXAPARIN 40MG/0.4ML SYRINGE (J1650 PER 10MG) SC SCH (08:59)
[2021-05-03] MEDS: dexameTHASONE 4 MG/ML 1ML VIAL (J1100 PER 1MG) IV SCH (08:59)
[2021-05-03 09:00] VITALS: O2SAT 95
[2021-05-03] MEDS: TAMSULOSIN 0.4 MG CAP PO SCH (09:00)
[2021-05-03 09:02] VITALS: BP 116/69
[2021-05-03 10:21] LABS: HEMATOCRIT 46.2 % (42.0-52.0); HEMOGLOBIN 15.6 g/dl (13.5-17.5); MEAN CORPUSCULAR HEMOGLOBIN 31.5 pg (27.0-33.0); MEAN CORPUSCULAR HGB CONC 33.8 g/dl (32.0-36.5); MEAN CORPUSCULAR VOLUME 93.3 fl (80.0-96.0); PLATELET COUNT, AUTOMATED 217 10^3/uL (150-450); RED BLOOD COUNT 4.95 10^6/uL (4.30-6.10); WHITE BLOOD COUNT 15.8 10^3/uL (4.0-10.0)
[2021-05-03 11:05] LABS: ALBUMIN 2.6 GM/DL (3.2-5.2); ALT/SGPT 45 U/L (12-78); BILIRUBIN,TOTAL 0.7 MG/DL (0.2-1.0); BLOOD UREA NITROGEN 23 MG/DL (7-18); CALCIUM LEVEL 8.4 MG/DL (8.8-10.2); CARBON DIOXIDE LEVEL 31 MEQ/L (21-32); CHLORIDE LEVEL 98 MEQ/L (98-107); CREATININE FOR GFR 0.88 MG/DL (0.70-1.30); FERRITIN 1709 NG/ML (26-388); GLOMERULAR FILTRATION RATE > 60.0 (>49); GLUCOSE, FASTING 115 MG/DL (70-100); SODIUM LEVEL 136 MEQ/L (136-145); TOTAL PROTEIN 6.6 GM/DL (6.4-8.2)
[2021-05-03 12:00] VITALS: BP 108/71
--- NOTE | 2021-05-03 17:54 | IPNPDOC ---
Date Seen The patient was seen on 05/03/21. Progress Note SUBJECTIVE: Still on 8L HFNC saturating well, complains of congestion. Suggest adding humidification. Denies incr chest pain, lightheadedness, fevers. OBJECTIVE: VITAL SIGNS: Please see below PHYSICAL EXAMINATION: VS: See below CONSTITUTIONAL: No acute distress, resting comfortably, AAO x 3 EYES: PERRLA, EOM intact HENT, MOUTH: Normocephalic, atraumatic, moist mucous membranes, NC in place NECK: SUPPLE, no JVD, no lymphadenopathy, no carotid bruit CV: Regular rate and rhythm, S1S2 normal, no murmurs/rubs/gallops RESPIRATORY: Decreased BS bilaterally, no rales/rhonchi/wheezes GI: BS positive in 4 quadrants, soft, nontender, nondistended, no rebound or guarding, no organomegaly : Deferred MUSCULOSKELETAL: Normal ROM. No cyanosis, clubbing, swelling, joint deformity, extremity edema INTEGUMENTARY: Intact, no rashes, no lesions, no erythema NEUROLOGIC: Cranial Nerves II-XII are intact, no focal deficits PSYCHIATRIC: Mood and affect are normal LABORATORY DATA: Please see below IMAGING: CXR 04/30/21: Bibasilar infiltrates essentially unchanged radiographically from April 28, 2021. ASSESSMENT: 71-year-old male with PMH of hypertension, bladder cancer, BPH, ins omnia, vitamin D deficiency, prediabetes admitted for shortness of breath secondary to Covid 19, rule out superimposed pneumonia. PLAN: #COVID-19 -92-93% on 8 L NC -Low procalcitonin, not suspecting superimposed PNA -F/u LDH,fibrinogen, d dimer, procalcitonin, PT/PTT regularly -Dexamethasone (Day 5) , remdesevir (Day 5) , baricitinib (Day 4) today. #hypertension -stable -Resume home meds #BPH -C/w home meds #bladder cancer hx -F/u with urology o/p #prediabetes, worsening hyperglycemia likely 2/2 to steroids -BS > 200 -HbA1c 6.5 -Increased levemir daily, c/w diabetic diet, FS AC/HS, ISS #DVT px -Lovenox DISPOSITION: Admitted as inpatient status. Plan is discharge home when medically improved VS, I&O, 24H, Fishbone Vital Signs/I&O Vital Signs Date Time Temp Pulse Resp B/P (MAP) Pulse Ox O2 Delivery O2 Flow Rate FiO2 05/03/21 12:00 97.4 87 18 108/71 (83) 94 High Flow Cannula 8.0 I&O- Last 24 Hours up to 6 AM 05/03/21 06:00 Intake Total 1590 ml Output Total 1250 ml Balance 340 ml Laboratory Data 24H LABS Laboratory Tests 2 05/02/21 20:29: Bedside Glucose (Misc Panel) 241H 05/03/21 06:01: Bedside Glucose (Misc Panel) 112 05/03/21 08:26: Nucleated Red Blood Cells % (auto) 0.0, D-Dimer, Quantitative 1510.28H, Anion Gap 7L, Glomerular Filtration Rate > 60.0, Calcium Level 8.4L, Ferritin 1709H, Total Bilirubin 0.7, Aspartate Amino Transf (AST/SGOT) 45H, Alanine A minotransferase (ALT/SGPT) 45, Alkaline Phosphatase 51, Total Protein 6.6, Albumin 2.6L, Albumin/Globulin Ratio 0.7 05/03/21 12:10: Bedside Glucose (Misc Panel) 201H CBC/BMP Laboratory Tests 05/03/21 08:26 Microbiology Microbiology 04/28/21 Blood Culture - Final, Complete NO GROWTH AFTER 5 DAYS 04/28/21 Blood Culture - Final, Complete NO GROWTH AFTER 5 DAYS Diana Davis MD May 03, 2021 17:54
[2021-05-03 20:00] VITALS: BP 135/73; O2SAT 90
[2021-05-04] VITALS (8 sets, daily range): BP systolic 118–142; BP diastolic 64–78; O2SAT 90–96
[2021-05-04 07:13] LABS: HEMATOCRIT 42.7 % (42.0-52.0); HEMOGLOBIN 14.6 g/dl (13.5-17.5); MEAN CORPUSCULAR HEMOGLOBIN 31.3 pg (27.0-33.0); MEAN CORPUSCULAR HGB CONC 34.2 g/dl (32.0-36.5); MEAN CORPUSCULAR VOLUME 91.6 fl (80.0-96.0); PLATELET COUNT, AUTOMATED 220 10^3/uL (150-450); RED BLOOD COUNT 4.66 10^6/uL (4.30-6.10); WHITE BLOOD COUNT 11.7 10^3/uL (4.0-10.0)
[2021-05-04 07:30] LABS: INR 1.01; PROTHROMBIN TIME 13.8 SECONDS (12.7-14.5)
[2021-05-04 07:47] LABS: ALBUMIN 2.3 GM/DL (3.2-5.2); ALT/SGPT 42 U/L (12-78); BILIRUBIN,DIRECT 0.2 MG/DL (0.0-0.2); BILIRUBIN,TOTAL 0.6 MG/DL (0.2-1.0); BLOOD UREA NITROGEN 21 MG/DL (7-18); CALCIUM LEVEL 8.7 MG/DL (8.8-10.2); CARBON DIOXIDE LEVEL 29 MEQ/L (21-32); CHLORIDE LEVEL 100 MEQ/L (98-107); CPK CREATINE PHOSPHOKINASE 39 U/L (39-308); CREATININE FOR GFR 0.69 MG/DL (0.70-1.30); FERRITIN 1681 NG/ML (26-388); GLOMERULAR FILTRATION RATE > 60.0 (>49); GLUCOSE, FASTING 107 MG/DL (70-100); LDH LACTATE DEHYDROGENASE 364 U/L (87-241); NT-PRO BNP 61 PG/ML (<125); POTASSIUM SERUM 3.9 MEQ/L (3.5-5.1); SODIUM LEVEL 134 MEQ/L (136-145); TOTAL PROTEIN 6.7 GM/DL (6.4-8.2); TROPONIN I < 0.02 NG/ML (< 0.10)
[2021-05-04] MEDS: ENOXAPARIN 40MG/0.4ML SYRINGE (J1650 PER 10MG) SC SCH (08:40)
[2021-05-04] MEDS: dexameTHASONE 4 MG/ML 1ML VIAL (J1100 PER 1MG) IV SCH (08:41)
[2021-05-04] MEDS: BARICITINIB 2MG TABLET (OLUMIANT) FOR EUA PO SCH (08:41)
[2021-05-04] MEDS: TAMSULOSIN 0.4 MG CAP PO SCH (08:42)
[2021-05-04] MEDS: HumaLOG INSULIN (NovoLOG) PER UNIT SC SCH ×4 (08:42→21:00)
[2021-05-04] MEDS: LEVEMIR (INSULIN DETEMIR) 1 UNITS/0.01ML SC SCH (08:43)
[2021-05-04] MEDS: hydroCHLOROthiazide 12.5 MG CAPSULE PO SCH (08:46)
[2021-05-04] MEDS: LevoFLOXacin 750 MG TABLET PO SCH (13:50)
--- NOTE | 2021-05-04 15:35 | IPNPDOC ---
Text Note Date of Service The patient was seen on 05/04/21. NOTE SUBJECTIVE: Still on 8L HFNC saturating well -This morning denies chest pain, palpitations, or fevers. OBJECTIVE: VITAL SIGNS: Please see below CONSTITUTIONAL: No acute distress, resting comfortably, AAO x 3 EYES: PERRLA, EOM intact HENT, MOUTH: Normocephalic, atraumatic, moist mucous membranes, NC in place NECK: SUPPLE, no JVD, no lymphadenopathy, no carotid bruit CV: Regular rate and rhythm, S1S2 normal, no murmurs/rubs/gallops RESPIRATORY: Diminished breath sounds bilaterally, no rales/rhonchi/wheezes GI: Normoactive bowel sounds in all 4 quadrants, soft, nontender, nondistended, no rebound or guarding, no organomegaly MUSCULOSKELETAL: Normal ROM. No cyanosis, clubbing, swelling, joint deformity, extremity edema INTEGUMENTARY: Intact, no rashes, no lesions, no erythema NEUROLOGIC: Cranial Nerves II-XII are intact, no focal deficits PSYCHIATRIC: Mood and affect are normal LABORATORY DATA: Reviewed IMAGING: CXR 04/30/21: Bibasilar infiltrates essentially unchanged radiographically from April 28, 2021. Micro: IgM and IgG positive for Mycoplasma ASSESSMENT: 71-year-old M with PMH of hypertension, bladder cancer, BPH, insomnia, vitamin D deficiency, prediabetes admitted for shortness of breath secondary to Covid 19 PNA with superimposed mycoplasma PNA. PLAN: #COVID-19 PNA -92-93% on 8 L NC -F/u LDH,fibrinogen, d dimer, procalcitonin, PT/PTT per covid-19 labs protocol -Dexamethasone (Day 6) , s/p 5d of remdesevir , baricitinib (Day 5) today. #Mycoplasma PNA: -start levaquin, day #1 #hypertension -stable -continue home meds #BPH -C/w home meds #bladder cancer hx -F/u with urology o/p #prediabetes, worsening hyperglycemia likely 2/2 to steroids -BS > 200 -HbA1c 6.5 -Continue levemir daily, c/w diabetic diet, FS AC/HS, ISS #DVT px -Lovenox DISPOSITION: Admitted as inpatient status. Plan is discharge home when medically improved VS,Fishbone, I+O VS, Fishbone, I+O Laboratory Tests 05/04/21 06:51 Vital Signs Date Time Temp Pulse Resp B/P (MAP) Pulse Ox O2 Delivery O2 Flow Rate FiO2 05/04/21 14:00 98.0 93 21 122/70 (87) 95 High Flow Cannula 8.0 I&O- Last 24 Hours up to 6 AM 05/04/21 05:59 Intake Total 120 ml Output Total 705 ml Balance -585 ml YULISA KEY MD May 04, 2021 15:35
[2021-05-05] VITALS (8 sets, daily range): BP systolic 96–139; BP diastolic 55–77; O2SAT 89–98
[2021-05-05] MEDS: LevoFLOXacin 750 MG TABLET PO SCH (05:58)
[2021-05-05 07:22] LABS: HEMATOCRIT 44.2 % (42.0-52.0); HEMOGLOBIN 14.9 g/dl (13.5-17.5); MEAN CORPUSCULAR HEMOGLOBIN 30.9 pg (27.0-33.0); MEAN CORPUSCULAR HGB CONC 33.7 g/dl (32.0-36.5); MEAN CORPUSCULAR VOLUME 91.7 fl (80.0-96.0); PLATELET COUNT, AUTOMATED 263 10^3/uL (150-450); RED BLOOD COUNT 4.82 10^6/uL (4.30-6.10); WHITE BLOOD COUNT 12.3 10^3/uL (4.0-10.0)
[2021-05-05 07:43] LABS: ALBUMIN 2.4 GM/DL (3.2-5.2); ALT/SGPT 40 U/L (12-78); BILIRUBIN,TOTAL 0.6 MG/DL (0.2-1.0); BLOOD UREA NITROGEN 22 MG/DL (7-18); CALCIUM LEVEL 8.5 MG/DL (8.8-10.2); CARBON DIOXIDE LEVEL 30 MEQ/L (21-32); CHLORIDE LEVEL 97 MEQ/L (98-107); CREATININE FOR GFR 0.79 MG/DL (0.70-1.30); GLOMERULAR FILTRATION RATE > 60.0 (>49); GLUCOSE, FASTING 143 MG/DL (70-100); SODIUM LEVEL 133 MEQ/L (136-145)
[2021-05-05] MEDS: HumaLOG INSULIN (NovoLOG) PER UNIT SC SCH ×4 (08:27→20:58)
[2021-05-05] MEDS: LEVEMIR (INSULIN DETEMIR) 1 UNITS/0.01ML SC SCH (08:29)
[2021-05-05] MEDS: ENOXAPARIN 40MG/0.4ML SYRINGE (J1650 PER 10MG) SC SCH (08:30)
[2021-05-05] MEDS: dexameTHASONE 4 MG/ML 1ML VIAL (J1100 PER 1MG) IV SCH (08:31)
[2021-05-05] MEDS: BARICITINIB 2MG TABLET (OLUMIANT) FOR EUA PO SCH (08:31)
[2021-05-05] MEDS: TAMSULOSIN 0.4 MG CAP PO SCH (08:31)
[2021-05-05] MEDS: hydroCHLOROthiazide 12.5 MG CAPSULE PO SCH (08:32)
--- NOTE | 2021-05-05 14:41 | IPNPDOC ---
Text Note Date of Service The patient was seen on 05/05/21. NOTE SUBJECTIVE: -Still on 8L HFNC saturating well -This morning denies chest pain, palpitations, or fevers. OBJECTIVE: VITAL SIGNS: Please see below CONSTITUTIONAL: No acute distress, resting comfortably, AAO x 3 EYES: PERRLA, EOM intact HENT, MOUTH: Normocephalic, atraumatic, moist mucous membranes, NC in place NECK: SUPPLE, no JVD, no lymphadenopathy, no carotid bruit CV: Regular rate and rhythm, S1S2 normal, no murmurs/rubs/gallops RESPIRATORY: Diminished breath sounds bilaterally, no rales/rhonchi/wheezes GI: Normoactive bowel sounds in all 4 quadrants, soft, nontender, nondistended, no rebound or guarding, no organomegaly MUSCULOSKELETAL: Normal ROM. No cyanosis, clubbing, swelling, joint deformity, extremity edema INTEGUMENTARY: Intact, no rashes, no lesions, no erythema NEUROLOGIC: Cranial Nerves II-XII are intact, no focal deficits PSYCHIATRIC: Mood and affect are normal LABORATORY DATA: Reviewed, stable IMAGING: CXR 04/30/21: Bibasilar infiltrates essentially unchanged radiographically from April 28, 2021. Micro: IgM and IgG positive for Mycoplasma ASSESSMENT: 71-year-old M with PMH of hypertension, bladder cancer, BPH, insomnia, vitamin D deficiency, prediabetes admitted for shortness of breath secondary to Covid 19 PNA with superimposed mycoplasma PNA. PLAN: #COVID-19 PNA -92-93% on 8 L NC -F/u LDH,fibrinogen, d dimer, procalcitonin, PT/PTT per covid-19 labs protocol -Dexamethasone (Day 7) , s/p 5d of remdesevir , baricitinib (Day 6) today. -encourage proning and out of bed -Incentive spirometry #Mycoplasma PNA: -levaquin, day #2 #hypertension -stable -continue home meds #BPH -C/w home meds #bladder cancer hx -F/u with urology o/p #prediabetes, worsening hyperglycemia likely 2/2 to steroids -BS > 200 -HbA1c 6.5 -Continue levemir daily, c/w diabetic diet, FS AC/HS, ISS #DVT px -Lovenox DISPOSITION: Admitted as inpatient status. Plan is discharge home when medically improved VS,Fishbone, I+O VS, Fishbone, I+O Laboratory Tests 05/05/21 06:47 Vital Signs Date Time Temp Pulse Resp B/P (MAP) Pulse Ox O2 Delivery O2 Flow Rate FiO2 05/05/21 08:31 113/74 05/05/21 08:00 98.6 96 20 90 High Flow Cannula 8.0 I&O- Last 24 Hours up to 6 AM 05/05/21 06:00 Intake Total 1040 ml Output Total 675 ml Balance 365 ml YULISA KEY MD May 05, 2021 10:37
[2021-05-06] VITALS (10 sets, daily range): BP systolic 100–126; BP diastolic 60–76; O2SAT 91–95
[2021-05-06] MEDS: LevoFLOXacin 750 MG TABLET PO SCH (05:43)
[2021-05-06] MEDS: dexameTHASONE 4 MG/ML 1ML VIAL (J1100 PER 1MG) IV SCH (08:56)
[2021-05-06] MEDS: hydroCHLOROthiazide 12.5 MG CAPSULE PO SCH (08:56)
[2021-05-06] MEDS: BARICITINIB 2MG TABLET (OLUMIANT) FOR EUA PO SCH (08:56)
[2021-05-06] MEDS: TAMSULOSIN 0.4 MG CAP PO SCH (08:56)
[2021-05-06] MEDS: LEVEMIR (INSULIN DETEMIR) 1 UNITS/0.01ML SC SCH (08:57)
[2021-05-06] MEDS: HumaLOG INSULIN (NovoLOG) PER UNIT SC SCH ×4 (08:58→21:00)
[2021-05-06] MEDS: ENOXAPARIN 40MG/0.4ML SYRINGE (J1650 PER 10MG) SC SCH (08:58)
[2021-05-06 11:08] LABS: HEMATOCRIT 47.1 % (42.0-52.0); HEMOGLOBIN 15.7 g/dl (13.5-17.5); MEAN CORPUSCULAR HEMOGLOBIN 30.7 pg (27.0-33.0); MEAN CORPUSCULAR HGB CONC 33.3 g/dl (32.0-36.5); PLATELET COUNT, AUTOMATED 312 10^3/uL (150-450); RED BLOOD COUNT 5.12 10^6/uL (4.30-6.10); WHITE BLOOD COUNT 17.8 10^3/uL (4.0-10.0)
[2021-05-06 11:27] LABS: BLOOD UREA NITROGEN 27 MG/DL (7-18); CARBON DIOXIDE LEVEL 29 MEQ/L (21-32); CHLORIDE LEVEL 97 MEQ/L (98-107); GLOMERULAR FILTRATION RATE > 60.0 (>49); GLUCOSE, FASTING 164 MG/DL (70-100); POTASSIUM SERUM 4.2 MEQ/L (3.5-5.1); SODIUM LEVEL 132 MEQ/L (136-145)
--- NOTE | 2021-05-06 14:04 | IPNPDOC ---
Text Note Date of Service The patient was seen on 05/06/21. NOTE SUBJECTIVE: -Now down to 6L HFNC saturating well. Sitting up in chair, reports that he feels better. -This morning denies chest pain, palpitations, or fevers. OBJECTIVE: VITAL SIGNS: Please see below CONSTITUTIONAL: No acute distress, resting comfortably, AAO x 3 EYES: PERRLA, EOM intact HENT, MOUTH: Normocephalic, atraumatic, moist mucous membranes, NC in place NECK: SUPPLE, no JVD, no lymphadenopathy, no carotid bruit CV: Regular rate and rhythm, S1S2 normal, no murmurs/rubs/gallops RESPIRATORY: Diminished breath sounds bilaterally, no rales/rhonchi/wheezes GI: Normoactive bowel sounds in all 4 quadrants, soft, nontender, nondistended, no rebound or guarding, no organomegaly MUSCULOSKELETAL: Normal ROM. No cyanosis, clubbing, swelling, joint deformity, e xtremity edema INTEGUMENTARY: Intact, no rashes, no lesions, no erythema NEUROLOGIC: Cranial Nerves II-XII are intact, no focal deficits PSYCHIATRIC: Mood and affect are normal LABORATORY DATA: Reviewed, pending AM labs, have otherwise been stable IMAGING: CXR 04/30/21: Bibasilar infiltrates essentially unchanged radiographically from April 28, 2021. Micro: IgM and IgG positive for Mycoplasma ASSESSMENT: 71-year-old M with PMH of hypertension, bladder cancer, BPH, insomnia, vitamin D deficiency, prediabetes admitted for shortness of breath secondary to Covid 19 PNA with superimposed mycoplasma PNA. PLAN: #COVID-19 PNA -92-93% on 8 L NC -F/u LDH,fibrinogen, d dimer, procalcitonin, PT/PTT per covid-19 labs protocol -Dexamethasone (Day 8) , s/p 5d of remdesevir , baricitinib (Day 7) today. -encourage proning and out of bed -Incentive spirometry #Mycoplasma PNA: -levaquin, day #3 #hypertension -stable -continue home meds #BPH -C/w home meds #bladder cancer hx -F/u with urology o/p #prediabetes, worsening hyperglycemia likely 2/2 to steroids -BS > 200 -HbA1c 6.5 -Continue levemir daily, c/w diabetic diet, FS AC/HS, ISS #DVT px -Lovenox DISPOSITION: Admitted as inpatient status. Plan is discharge home when medically improved VS,Fishbone, I+O VS, Fishbone, I+O Vital Signs Date Time Temp Pulse Resp B/P (MAP) Pulse Ox O2 Delivery O2 Flow Rate FiO2 05/06/21 09:00 129/70 05/06/21 05:30 97.4 63 15 97 High Flow Cannula 6.0 I&O- Last 24 Hours up to 6 AM 05/06/21 06:00 Intake Total 360 ml Output Total 700 ml Balance -340 ml YULISA KEY MD May 06, 2021 09:24
[2021-05-07] VITALS: O2SAT 98
[2021-05-07 02:00] VITALS: BP 118/75
[2021-05-07] MEDS: LevoFLOXacin 750 MG TABLET PO SCH (05:34)
[2021-05-07 06:00] VITALS: BP 114/63
[2021-05-07 06:21] LABS: HEMATOCRIT 44.3 % (42.0-52.0); HEMOGLOBIN 14.9 g/dl (13.5-17.5); MEAN CORPUSCULAR HGB CONC 33.6 g/dl (32.0-36.5); MEAN CORPUSCULAR VOLUME 92.3 fl (80.0-96.0); PLATELET COUNT, AUTOMATED 232 10^3/uL (150-450); WHITE BLOOD COUNT 10.8 10^3/uL (4.0-10.0)
[2021-05-07 06:42] LABS: BLOOD UREA NITROGEN 30 MG/DL (7-18); CALCIUM LEVEL 9.1 MG/DL (8.8-10.2); CARBON DIOXIDE LEVEL 29 MEQ/L (21-32); CHLORIDE LEVEL 96 MEQ/L (98-107); CREATININE FOR GFR 0.88 MG/DL (0.70-1.30); GLOMERULAR FILTRATION RATE > 60.0 (>49); GLUCOSE, FASTING 144 MG/DL (70-100); POTASSIUM SERUM 4.2 MEQ/L (3.5-5.1); SODIUM LEVEL 129 MEQ/L (136-145)
[2021-05-07 08:00] VITALS: BP 118/76; O2SAT 94
[2021-05-07 08:41] VITALS: BP 118/76
[2021-05-07] MEDS: BARICITINIB 2MG TABLET (OLUMIANT) FOR EUA PO SCH (08:41)
[2021-05-07] MEDS: dexameTHASONE 4 MG/ML 1ML VIAL (J1100 PER 1MG) IV SCH (08:42)
[2021-05-07] MEDS: TAMSULOSIN 0.4 MG CAP PO SCH (08:42)
[2021-05-07] MEDS: ENOXAPARIN 40MG/0.4ML SYRINGE (J1650 PER 10MG) SC SCH (08:42)
[2021-05-07] MEDS: hydroCHLOROthiazide 12.5 MG CAPSULE PO SCH (08:42)
[2021-05-07] MEDS: LEVEMIR (INSULIN DETEMIR) 1 UNITS/0.01ML SC SCH (08:43)
[2021-05-07] MEDS: HumaLOG INSULIN (NovoLOG) PER UNIT SC SCH ×2 (08:43→12:47)
[2021-05-07] MEDS ORDERED: LEVO750T13 PO (09:18)
[2021-05-07] MEDS ORDERED: PANT40TA29 PO (09:21)
[2021-05-07] MEDS ORDERED: PROAAER10 INH (09:21)
[2021-05-07] MEDS ORDERED: PRED10TA2 PO (09:21)
[2021-05-07 12:00] VITALS: BP 99/59
--- NOTE | 2021-05-07 14:01 | DS.PDOC ---
Discharge Summary General Date of Admission Apr 28, 2021 at 17:49 Date of Discharge 05/07/2021 Attending Physician: YULISA KEY MD Discharge Summary PROCEDURES PERFORMED DURING STAY: None ADMITTING DIAGNOSES: covid-19 PNA Acute hypoxemic respiratory failure DISCHARGE DIAGNOSES: covid-19 PNA Mycoplasma PNA Acute hypoxemic respiratory failure hypertension bladder cancer BPH prediabetes COMPLICATIONS/CHIEF COMPLAINT: Covid-19, Hypoxia. HISTORY OF PRESENT ILLNESS: 71-year-old M with PMH of hypertension, bladder cancer, BPH, insomnia, vitamin D deficiency, prediabetes who presented to [facility] emergency room with the chief complaint of increased dizziness, decreased appetite, lethargy, lightheadedness, diarrhea worsening over 12 weeks. The patient was seen in our emergency room on 04/27/2021 and diagnosed with Covid 19. His chest x-ray showed atelectasis and bilateral infiltrates right greater than left but the patient remained stable on room air. He was sent home with a pulse oximeter and told to follow-up with his primary care provider or return if worsened. Over the evening the patient states he became increasingly hypoxic and began having increased diaphoresis with fevers documented at home. He reported that he also had an episode of loss of consciousness for approximately 1 minute witnessed by his . The patient also documented having O2 saturations in the 70s. Due to all of the above the patient came in for reevaluation. HOSPITAL COURSE: In the emergency room vital signs showed temperature 100 F, pulse 90, respiratory rate 20, blood pressure 113/69, saturating at 8893 percent on 2 L nasal cannula. Off oxygen the patient was going to the low 80s. Worsened with activity. Chest x-ray was repeated and was similar to the prior. Labs were essentially unremarkable. Inflammatory labs were elevated and due to increasing hypoxia and symptoms mentioned above patient was admitted for acute hypoxemic respiratory failure 2/2 Covid 19 PNA, and to rule out superimposed pneumonia. His course was c/b worsening hypoxemia requiring even more oxygen and he was stared on baricitinib for which he received 9d, remdesevir for which he received 5d, and dexamethasone for which he received 10d. He was also found to have superimposed acute mycoplasma PNA and he was started on levaquin. His hypoxemia eventually improved and he is now currently requiring 3L NC at rest. He is now being discharged home on supplemental oxygen with close PCP follow up, to complete a levaquin course, PRN albuterol for SOB and wheezing, and recommendation to continue self isolation until all symptoms resolve. I have also started him on short prednisone taper and pantoprazole for GI prophylaxis given the prolonged steroid use for his covid-19 PNA. Of note, e worked with PT was recommended for a rolling walker and home with services. DISCHARGE MEDICATIONS: Please see below. ALLERGIES: Please see below. PHYSICAL EXAMINATION ON DISCHARGE: VITAL SIGNS: Please see below. CONSTITUTIONAL: No acute distress, resting comfortably, AAO x 3 EYES: PERRLA, EOM intact HENT, MOUTH: Normocephalic, atraumatic, moist mucous membranes, NC in place NECK: SUPPLE, no JVD, no lymphadenopathy, no carotid bruit CV: Regular rate and rhythm, S1S2 normal, no murmurs/rubs/gallops RESPIRATORY: Diminished breath sounds bilaterally, no rales/rhonchi/wheezes GI: Normoactive bowel sounds in all 4 quadrants, soft, nontender, nondistended, no rebound or guarding, no organomegaly MUSCULOSKELETAL: Normal ROM. No cyanosis, clubbing, swelling, joint deformity, extremity edema INTEGUMENTARY: Intact, no rashes, no lesions, no erythema NEUROLOGIC: Cranial Nerves II-XII are intact, no focal deficits PSYCHIATRIC: Mood and affect are normal LABORATORY DATA: Please see below. Micro: IgM and IgG positive for Mycoplasma IMAGING: CXR 04/30/21: Bibasilar infiltrates essentially unchanged radiographically from April 28, 2021. PROGNOSIS: Good ACTIVITY: As tolerated DIET: 2g sodium DISCHARGE PLAN: Home with plan to complete levaquin course for Mycoplasma PNA, prednisone taper, supplemental O2, protonix for GI ppx, albuterol mdi for PRN use for SOB and wheezing and close PCP follow up within 1 week of discharge. DISPOSITION: home DISCHARGE INSTRUCTIONS: Home with plan to complete levaquin course for Mycoplasma PNA, prednisone taper, supplemental O2, protonix for GI ppx, albuterol mdi for PRN use for SOB and wheezing and close PCP follow up within 1 week of discharge. ITEMS TO FOLLOWUP ON ON OUTPATIENT: resolution of covid-19 PNA and mycoplasma PNA Acute hypoxemic respiratory failure, and oxygen requirements DISCHARGE CONDITION: Stable TIME SPENT ON DISCHARGE: 47 minutes. Vital Signs/I&Os Vital Signs Date Time Temp Pulse Resp B/P (MAP) Pulse Ox O2 Delivery O2 Flow Rate FiO2 05/07/21 08:41 118/76 05/07/21 08:00 96.6 79 18 93 Nasal Cannula 3.0 I&O- Last 24 Hours up to 6 AM 05/07/21 06:00 Intake Total 1140 ml Output Total 1125 ml Balance 15 ml Laboratory Data Labs 24H Laboratory Tests 2 05/06/21 10:55: Nucleated Red Blood Cells % (auto) 0.0, Anion Gap 6L, Glomerular Filtration Rate > 60.0, Calcium Level 9.0 05/06/21 12:29: Bedside Glucose (Misc Panel) 237H 05/06/21 16:58: Bedside Glucose (Misc Panel) 316H 05/06/21 20:10: Bedside Glucose (Misc Panel) 245H 05/07/21 05:40: Nucleated Red Blood Cells % (auto) 0.0, Anion Gap 4L, Glomerular Filtration Rate > 60.0, Calcium Level 9.1 CBC/BMP Laboratory Tests 05/06/21 10:55 05/07/21 05:40 FSBS Laboratory Tests Test 05/06/21 12:29 05/06/21 16:58 05/06/21 20:10 Range/Units Bedside Glucose (Misc Panel) 237 316 245 80-115 MG/DL Microbiology Microbiology 04/28/21 Blood Culture - Final, Complete NO GROWTH AFTER 5 DAYS 04/28/21 Blood Culture - Final, Complete NO GROWTH AFTER 5 DAYS Discharge Medications Scheduled Ascorbic Acid (Vitamin C) 100 Mg Tablet, 100 MG PO DAILY, (Reported) Cholecalciferol (Vitamin D3) (Vitamin D3) 125 Mcg Capsule, 125 MCG PO DAILY, (Reported) Hydroxyzine HCl (Hydroxyzine HCl) 25 Mg Tablet, 25 MG PO DAILY, (Reported) Levofloxacin (Levofloxacin) 750 Mg Tablet, 750 MG PO DAILY@06 Lisinopril/Hydrochlorothiazide (Lisinopril-Hctz 20-12.5 mg Tab) 1 Tab Tab, 1 TAB PO DAILY, (Reported) Pantoprazole Sodium (Pantoprazole Sodium) 40 Mg Tablet.dr, 1 TAB PO DAILY Prednisone (Prednisone) 10 Mg Tablet, 1 TAB PO ASDIRECTED 40mg daily for 2d, 30mg daily for 2d, 20mg daily for 2d, 10mg daily for 2d Tadalafil (Cialis) 5 Mg Tab, 5 MG PO DAILY, (Reported) Tamsulosin HCl (Flomax) 0.4 Mg Cap, 0.4 MG PO DAILY, (Reported) Scheduled PRN Albuterol Sulfate (Proair Hfa) 8.5 Gm Hfa.aer.ad, 2 PUFF INH Q4-6HP PRN for wheezing Diclofenac Sodium (Diclofenac Sodium) 1% 100GM Gel..gram., 1 APLCT TOP QID PRN f or PAIN LEVEL 1-4, (Reported) APPLIED TO SHOULDERS Trazodone HCl (Trazodone HCl) 50 Mg Tablet, 50 MG PO QHS PRN for INSOMNIA, (Reported) Allergies Coded Allergies: TAPE (Verified Allergy, Mild, RASH, 09/12/16) ADHESIVE TAPE amoxicillin (Verified Allergy, Unknown, 08/09/19) clavulanic acid (Verified Allergy, Unknown, 08/09/19) lansoprazole (Verified Allergy, Unknown, 08/09/19) codeine (Verified Adverse Reaction, Unknown, headaches, 08/09/19) YULISA KEY MD May 07, 2021 09:33
== END 2021-05-07 15:18 | disposition home health service (06) | DRG 177 ==
LOC: M ED 12:35 → M ED INP 17:49 → M 4MAIN 04-29 13:00
PROVIDERS: ADMIT Internal Medicine; ATTEND Internal Medicine
PROC: XW033E5 Introduction of Remdesivir Anti-infective into Peripheral Vein, Percutaneous Approach, New Technology Group 5 (ICD-10-PCS; principal; 2021-04-28)
PROC: 3E0333Z Introduction of Anti-inflammatory into Peripheral Vein, Percutaneous Approach (ICD-10-PCS; 2021-04-28)
DX: U07.1 COVID-19 (principal); J12.82 Pneumonia due to coronavirus disease 2019; J15.7 Pneumonia due to Mycoplasma pneumoniae; J96.01 Acute respiratory failure with hypoxia; I10 Essential (primary) hypertension; N40.0 Benign prostatic hyperplasia without lower urinary tract symptoms; R11.2 Nausea with vomiting, unspecified; R73.03 Prediabetes; Z85.51 Personal history of malignant neoplasm of bladder; G47.00 Insomnia, unspecified; E55.9 Vitamin D deficiency, unspecified; Z87.891 Personal history of nicotine dependence; Z79.899 Other long term (current) drug therapy; Z88.0 Allergy status to penicillin; Z88.5 Allergy status to narcotic agent; Z88.8 Allergy status to other drugs, medicaments and biological substances; Z91.048 Other nonmedicinal substance allergy status

== ENCOUNTER → 2021-07-05 | Outpatient (REF) | payer MEDICARE ==
[~2021-07-05] MED LIST changes: +DICL1GEL3 TOP; +HYDR-3363 PO; +LEVO750T13 PO; +PANT40TA29 PO; +PRED10TA2 PO; +PROAAER10 INH; +TRAZ-252 PO; +VITA100T59 PO; +VITA500054 PO
== END ==
LOC: M SMT 17:16
PROVIDERS: ATTEND Urology
DX: C67.9 Malignant neoplasm of bladder, unspecified (principal)
CPT/HCPCS: 52000; 88108; G0463

== ENCOUNTER → 2021-10-12 | Outpatient (CLI) | payer MEDICARE ==
[~2021-10-12] MED LIST changes: -LISI10TA15 PO; +LISI10TA24 PO
[2021-10-12 13:21] LABS: HEMATOCRIT 46.8 % (42.0-52.0); HEMOGLOBIN 15.3 g/dl (13.5-17.5); MEAN CORPUSCULAR HEMOGLOBIN 30.4 pg (27.0-33.0); MEAN CORPUSCULAR HGB CONC 32.7 g/dl (32.0-36.5); PLATELET COUNT, AUTOMATED 224 10^3/uL (150-450); RED BLOOD COUNT 5.03 10^6/uL (4.30-6.10); WHITE BLOOD COUNT 7.5 10^3/uL (4.0-10.0)
[2021-10-12 13:56] LABS: BLOOD UREA NITROGEN 16 MG/DL (7-18); CALCIUM LEVEL 9.7 MG/DL (8.8-10.2); CARBON DIOXIDE LEVEL 32 MEQ/L (21-32); CHLORIDE LEVEL 101 MEQ/L (98-107); CHOLESTEROL LEVEL 202 MG/DL (<200); CHOLESTEROL RISK RATIO 3.423 (<5); CREATININE FOR GFR 0.93 MG/DL (0.70-1.30); GLOMERULAR FILTRATION RATE > 60.0 (>49); GLUCOSE, FASTING 185 MG/DL (70-100); HDL CHOLESTEROL 59 MG/DL (>40); LDL CHOLESTEROL 73 MG/DL (<100); NON-HDL-C 143 MG/DL; POTASSIUM SERUM 4.8 MEQ/L (3.5-5.1); SODIUM LEVEL 138 MEQ/L (136-145); TRIGLYCERIDES LEVEL 348 MG/DL (<150)
[2021-10-12 14:27] LABS: HEMOGLOBIN A1c 7.1 %
[2021-10-12 14:53] LABS: HEPATITIS C VIRUS ABY INDEX 0.2 INDEX (<0.8)
[2021-10-12 14:54] LABS: HIV 1&2 SCREEN CENTAUR NEGATIVE (NEGATIVE)
== END ==
LOC: M PLALAB 09:38
PROVIDERS: ATTEND Student in an Organized Health Care Education/Training Program
DX: E11.65 Type 2 diabetes mellitus with hyperglycemia (principal); Z13.6 Encounter for screening for cardiovascular disorders; Z11.4 Encounter for screening for human immunodeficiency virus [HIV]; Z11.59 Encounter for screening for other viral diseases; U07.1 COVID-19

== ENCOUNTER → 2021-10-12 | Outpatient (CLI) | payer MEDICARE | LOC: M PLALAB 09:36 | PROVIDERS: ATTEND Urology | DX: Z12.5 Encounter for screening for malignant neoplasm of prostate (principal) | CPT/HCPCS: 36415; G0103 ==

== ENCOUNTER → 2022-03-30 | Outpatient (CLI) | payer MEDICARE ==
[~2022-03-30] MED LIST changes: +LEVO1TAB40 PO; -LEVO750T13 PO
[2022-03-30 18:35] LABS: MALB URINE SIEMENS 29.9 MG/L; MAU/CREAT RATIO 28.7 MCG/MG (0.0-30.0)
[2022-03-30 18:40] LABS: ALBUMIN 4.2 GM/DL (3.2-5.2); ALT/SGPT 65 U/L (12-78); BILIRUBIN,TOTAL 0.4 MG/DL (0.2-1.0); BLOOD UREA NITROGEN 18 MG/DL (7-18); CALCIUM LEVEL 9.8 MG/DL (8.8-10.2); CARBON DIOXIDE LEVEL 32 MEQ/L (21-32); CHLORIDE LEVEL 97 MEQ/L (98-107); CHOLESTEROL LEVEL 211 MG/DL (<200); CHOLESTEROL RISK RATIO 3.403 (<5); CREATININE FOR GFR 0.92 MG/DL (0.70-1.30); GLOMERULAR FILTRATION RATE > 60.0 (>42); GLUCOSE, FASTING 148 MG/DL (70-100); HDL CHOLESTEROL 62 MG/DL (>40); LDL CHOLESTEROL 96 MG/DL (<100); NON-HDL-C 149 MG/DL; POTASSIUM SERUM 3.8 MEQ/L (3.5-5.1); SODIUM LEVEL 133 MEQ/L (136-145); TOTAL PROTEIN 7.8 GM/DL (6.4-8.2); TRIGLYCERIDES LEVEL 263 MG/DL (<150)
== END ==
LOC: M WUC 14:45
PROVIDERS: ATTEND Nurse Practitioner Family
DX: E11.65 Type 2 diabetes mellitus with hyperglycemia (principal); E78.2 Mixed hyperlipidemia

== ENCOUNTER → 2022-06-07 | Outpatient (CLI) | payer MEDICARE ==
[2022-06-07 17:20] LABS: BLOOD UREA NITROGEN 24 MG/DL (9-23); CALCIUM LEVEL 9.1 MG/DL (8.3-10.6); CARBON DIOXIDE LEVEL 27 MMOL/L (20-31); CHLORIDE LEVEL 98 MMOL/L (98-107); GLOMERULAR FILTRATION RATE > 60.0 (>42); GLUCOSE, FASTING 199 MG/DL (74-106); POTASSIUM SERUM 4.2 MMOL/L (3.5-5.1); SODIUM LEVEL 135 MMOL/L (136-145)
[2022-06-07 18:38] LABS: HEMOGLOBIN A1c 7.3 % (4.0-6.0)
== END ==
LOC: M WUC 09:34
PROVIDERS: ATTEND Nurse Practitioner Family
DX: E11.65 Type 2 diabetes mellitus with hyperglycemia (principal)

== ENCOUNTER → 2022-07-04 | Outpatient (REF) | payer MEDICARE | LOC: M SMT 13:03 | PROVIDERS: ATTEND Urology | DX: C67.9 Malignant neoplasm of bladder, unspecified (principal); R82.89 Other abnormal findings on cytological and histological examination of urine ==

== ENCOUNTER → 2022-07-05 | Outpatient (CLI) | payer MEDICARE | LOC: M RAD 07:29 | PROVIDERS: ATTEND Nurse Practitioner Family | DX: Z87.891 Personal history of nicotine dependence (principal) ==

== ENCOUNTER → 2022-07-20 | Outpatient (CLI) | payer MEDICARE ==
[~2022-07-20] MED LIST changes: +METF-838 PO; +PROA1AER2 IN
[2022-07-20 09:44] LABS: HEMATOCRIT 42.6 % (42.0-52.0); HEMOGLOBIN 14.1 g/dl (13.5-17.5); MEAN CORPUSCULAR HEMOGLOBIN 31.1 pg (27.0-33.0); MEAN CORPUSCULAR HGB CONC 33.1 g/dl (32.0-36.5); PLATELET COUNT, AUTOMATED 201 10^3/uL (150-450); RED BLOOD COUNT 4.53 10^6/uL (4.30-6.10); WHITE BLOOD COUNT 6.1 10^3/uL (4.0-10.0)
[2022-07-20 10:20] LABS: BLOOD UREA NITROGEN 15 MG/DL (9-23); CALCIUM LEVEL 8.4 MG/DL (8.3-10.6); CARBON DIOXIDE LEVEL 30 MMOL/L (20-31); CHLORIDE LEVEL 100 MMOL/L (98-107); GLOMERULAR FILTRATION RATE > 60.0 (>42); GLUCOSE, FASTING 229 MG/DL (74-106); POTASSIUM SERUM 3.8 MMOL/L (3.5-5.1); SODIUM LEVEL 136 MMOL/L (136-145)
== END ==
LOC: M WUC 08:07
PROVIDERS: ATTEND Urology
DX: Z01.818 Encounter for other preprocedural examination (principal); C67.9 Malignant neoplasm of bladder, unspecified; N40.1 Benign prostatic hyperplasia with lower urinary tract symptoms; N21.0 Calculus in bladder

== ENCOUNTER → 2022-07-25 | Outpatient (CLI) | payer MEDICARE | LOC: M LABSMTC 09:42 | PROVIDERS: ATTEND Anesthesiology | DX: Z01.818 Encounter for other preprocedural examination (principal) ==

== ENCOUNTER 2022-07-27 12:56 | Day surgery (SDC) | payer MEDICARE ==
[~2022-07-27] VITALS: Ht 162.6 cm; Wt 88.5 kg
[~2022-07-27 12:56] MED LIST changes: +ceFAZolin SOD 2 GM in IV 1 EA IV ONE
[2022-07-27] MEDS ORDERED: LR 1,000 ML IV SCH ×2 (13:45→16:50)
[2022-07-27] MEDS ORDERED: SUGAMMADEX SODIUM 500 MG/5 ML VIAL (BRIDION) As Ordered ONE (13:58)
[2022-07-27] MEDS ORDERED: KETOROLAC 60MG 2ML VIAL As Ordered ONE (13:58)
[2022-07-27] MEDS ORDERED: ONDANSETRON 4MG 2ML VIAL As Ordered ONE (13:58)
[2022-07-27] MEDS ORDERED: ROCURONIUM BROMIDE 50MG/5ML VIAL As Ordered ONE ×2 (13:58→15:20)
[2022-07-27] MEDS ORDERED: propofoL 200 MG/20 ML VIAL As Ordered ONE (13:58)
[2022-07-27] MEDS ORDERED: LIDOCAINE 2% 100MG/5ML SDV (FOR ANES.) As Ordered ONE (13:58)
[2022-07-27] MEDS ORDERED: MIDAZOLAM INJ 2MG/2ML VIAL As Ordered ONE (13:59)
[2022-07-27] MEDS ORDERED: fentaNYL 100 MCG/2 ML INJECTION As Ordered ONE (13:59)
[2022-07-27] MEDS ORDERED: ISOVUE-300 61% 50ML VIAL As Ordered ONE (14:12)
[2022-07-27] MEDS ORDERED: LABETALOL 100MG/20ML VIAL As Ordered ONE (15:22)
[2022-07-27] MEDS ORDERED: fentaNYL 100 MCG/2 ML INJECTION IV PRN (16:50)
[2022-07-27] MEDS ORDERED: HYDROMORPHONE HCL 0.5 MG/ 0.5 ML SYRINGE IV PRN (16:50)
[2022-07-27] MEDS ORDERED: ONDANSETRON 4MG 2ML VIAL IV PRN (16:50)
[2022-07-27] MEDS ORDERED: CIPR-249 PO (17:06)
[2022-07-27] MEDS ORDERED: FUROSEMIDE 100MG/10ML VIAL As Ordered ONE (17:13)
[2022-07-27] MEDS: oxyCODONE 5MG TAB PO PRN ×2 (17:23→17:51)
[2022-07-27 18:35] VITALS: BP 142/78
[2022-08-02 13:07] LABS: CA Oxalate Dihy 40 % (.); Ca Ox Monohydrate 55 % (.); Size 6x7 mm (.)
== END 2022-07-27 18:45 | disposition home or self-care (01) ==
LOC: M SDC 12:56
PROVIDERS: ATTEND Urology
DX: C67.9 Malignant neoplasm of bladder, unspecified (principal); N40.1 Benign prostatic hyperplasia with lower urinary tract symptoms; N21.0 Calculus in bladder; E78.2 Mixed hyperlipidemia; E11.9 Type 2 diabetes mellitus without complications; I10 Essential (primary) hypertension; E66.9 Obesity, unspecified; Z79.899 Other long term (current) drug therapy; Z79.84 Long term (current) use of oral hypoglycemic drugs; Z79.82 Long term (current) use of aspirin; Z88.5 Allergy status to narcotic agent; Z88.1 Allergy status to other antibiotic agents; Z88.8 Allergy status to other drugs, medicaments and biological substances; Z91.048 Other nonmedicinal substance allergy status
CPT/HCPCS: 52235; 52317; 52332; 52601; 74420; 82365; 88305; C1769; C2617; J1100; J1940; J2405; Q9967

== ENCOUNTER → 2022-08-04 | Outpatient (REF) | payer MEDICARE ==
[~2022-08-04] MED LIST changes: +CIPR-249 PO; -ceFAZolin SOD 2 GM in IV 1 EA IV ONE
[2022-08-04 10:53] LABS: APPEARANCE, URINE MANUAL CLOUDY (CLEAR); BILIRUBIN, URINE MANUAL OBSCURED (NEGATIVE); BLOOD URINE MANUAL POSITIVE (NEGATIVE); COLOR, URINE MANUAL RED (YELLOW); GLUCOSE, URINE (UA) MANUAL NEGATIVE (NEGATIVE); KETONE, URINE MANUAL OBSCURED mg/dL (NEGATIVE); LEUKOCYTE ESTERASE, URINE MAN POSITIVE (NEGATIVE); NITRITE, URINE MANUAL OBSCURED (NEGATIVE); PROTEIN, URINE MANUAL 3+ mg/dL (NEGATIVE); UROBILINOGEN, URINE MANUAL OBSCURED mg/dl (NORMAL)
[2022-08-04 11:07] LABS: BACTERIA, URINE SMALL AMOUNT; HYALINE CAST, URINE NONE SEEN /lpf (0-1); RBC, URINE TNTC /hpf (0-3); WBC, URINE 20-30 /hpf (0-3)
[2022-08-04 11:08] LABS: SQUAMOUS EPITHELIAL CELL URINE SMALL AMOUNT /hpf (SMALL AMT)
== END ==
LOC: M SMT 10:02
PROVIDERS: ATTEND Urology
DX: N39.0 Urinary tract infection, site not specified (principal)

== ENCOUNTER → 2022-10-31 | Outpatient (REF) | payer MEDICARE ==
[~2022-10-31] MED LIST changes: +ONDA4TAB6 PO; +VANC125C3 PO
== END ==
LOC: M SMT 09:57
PROVIDERS: ATTEND Urology
DX: C67.9 Malignant neoplasm of bladder, unspecified (principal); N39.0 Urinary tract infection, site not specified

== ENCOUNTER 2022-11-11 18:33 | Emergency (ER) | payer MEDICARE ==
[~2022-11-11] VITALS: Ht 162.6 cm; Wt 85.0 kg
[~2022-11-11 18:33] MED LIST changes: -ONDA4TAB6 PO; -VANC125C3 PO
[2022-11-11 18:37] VITALS: BP 156/93
[2022-11-11] MEDS ORDERED: NS 500 ML IV ONE (19:20)
[2022-11-11] MEDS ORDERED: ONDA4TAB6 PO (19:33)
[2022-11-11] MEDS ORDERED: VANC125C3 PO (19:33)
[2022-11-11] MEDS ORDERED: VANCOMYCIN ORAL SOL 250MG/5ML ORAL SYRINGE PO ONE ×2 (19:40→20:40)
[2022-11-11] MEDS ORDERED: NS 1,000 ML IV ONE (19:40)
[2022-11-11] MEDS ORDERED: ONDANSETRON 4MG 2ML VIAL IV ONE (19:40)
== END 2022-11-11 21:24 | disposition home or self-care (01) ==
LOC: M ED 18:33
DX: A04.72 Enterocolitis due to Clostridium difficile, not specified as recurrent (principal); E11.9 Type 2 diabetes mellitus without complications; I10 Essential (primary) hypertension; E55.9 Vitamin D deficiency, unspecified; Z88.5 Allergy status to narcotic agent; Z88.1 Allergy status to other antibiotic agents; Z88.8 Allergy status to other drugs, medicaments and biological substances; Z79.899 Other long term (current) drug therapy; Z79.84 Long term (current) use of oral hypoglycemic drugs
CPT/HCPCS: 36415; 80053; 85025; 87507; 96374; 99284; J2405

== ENCOUNTER → 2022-11-11 | Outpatient (CLI) | payer MEDICARE ==
[2022-11-11 14:07] LABS: ALBUMIN 3.4 G/DL (3.2-5.2); ALKALINE PHOSPHATASE 90 U/L (46-116); ALT/SGPT 64 U/L (7.0-40); AST/SGOT 28 U/L (<34); BILIRUBIN,TOTAL 0.5 MG/DL (0.3-1.2); BLOOD UREA NITROGEN 10 MG/DL (9-23); CALCIUM LEVEL 8.9 MG/DL (8.3-10.6); CARBON DIOXIDE LEVEL 27 MMOL/L (20-31); CHLORIDE LEVEL 98 MMOL/L (98-107); CREATININE FOR GFR 0.83 MG/DL (0.70-1.30); GLOMERULAR FILTRATION RATE > 60.0 (>42); GLUCOSE, FASTING 293 MG/DL (74-106); SODIUM LEVEL 133 MMOL/L (136-145); TOTAL PROTEIN 6.8 G/DL (5.7-8.2)
[2022-11-11 14:08] LABS: BASO # 0.1 10^3/uL (0.0-0.2); BASO % 0.3 % (0.0-1.0); HEMATOCRIT 49.3 % (42.0-52.0); HEMOGLOBIN 16.3 g/dl (13.5-17.5); LYMPH # 1.2 10^3/uL (1.5-5.0); LYMPH % 5.6 % (24.0-44.0); MEAN CORPUSCULAR HEMOGLOBIN 30.5 pg (27.0-33.0); MEAN CORPUSCULAR HGB CONC 33.1 g/dl (32.0-36.5); MEAN CORPUSCULAR VOLUME 92.1 fl (80.0-96.0); MONO # 1.3 10^3/uL (0.0-0.8); MONO % 6.3 % (2.0-8.0); NEUTROPHILS # 18.3 10^3/uL (1.5-8.5); NEUTROPHILS % 87.1 % (36.0-66.0); PLATELET COUNT, AUTOMATED 290 10^3/uL (150-450); RED BLOOD COUNT 5.35 10^6/uL (4.30-6.10)
== END ==
LOC: M PLALAB 10:49
PROVIDERS: ATTEND Nurse Practitioner Family
DX: R19.7 Diarrhea, unspecified (principal)

== ENCOUNTER → 2022-12-05 | Outpatient (CLI) | payer MEDICARE ==
[~2022-12-05] MED LIST changes: +ONDA4TAB6 PO; +VANC125C3 PO
[2022-12-05 10:28] LABS: BASO # 0.1 10^3/uL (0.0-0.2); BASO % 0.8 % (0.0-1.0); EOS # 0.3 10^3/uL (0.0-0.5); EOS % 2.8 % (0.0-3.0); HEMATOCRIT 42.6 % (42.0-52.0); HEMOGLOBIN 14.1 g/dl (13.5-17.5); LYMPH # 2.7 10^3/uL (1.5-5.0); LYMPH % 28.1 % (24.0-44.0); MEAN CORPUSCULAR HEMOGLOBIN 30.6 pg (27.0-33.0); MEAN CORPUSCULAR HGB CONC 33.1 g/dl (32.0-36.5); MEAN CORPUSCULAR VOLUME 92.4 fl (80.0-96.0); MONO # 0.8 10^3/uL (0.0-0.8); MONO % 8.5 % (2.0-8.0); NEUTROPHILS # 5.7 10^3/uL (1.5-8.5); NEUTROPHILS % 59.2 % (36.0-66.0); PLATELET COUNT, AUTOMATED 261 10^3/uL (150-450); RED BLOOD COUNT 4.61 10^6/uL (4.30-6.10); WHITE BLOOD COUNT 9.7 10^3/uL (4.0-10.0)
[2022-12-05 10:40] LABS: HEMOGLOBIN A1c 8.8 % (4.0-6.0)
[2022-12-05 10:46] LABS: CREATININE, URINE 139.9 MG/DL
[2022-12-05 10:49] LABS: ALBUMIN 3.9 G/DL (3.2-5.2); ALKALINE PHOSPHATASE 78 U/L (46-116); ALT/SGPT 83 U/L (7.0-40); AST/SGOT 45 U/L (<34); BILIRUBIN,TOTAL 0.4 MG/DL (0.3-1.2); BLOOD UREA NITROGEN 20 MG/DL (9-23); CALCIUM LEVEL 9.5 MG/DL (8.3-10.6); CARBON DIOXIDE LEVEL 25 MMOL/L (20-31); CHLORIDE LEVEL 101 MMOL/L (98-107); CHOLESTEROL LEVEL 196 MG/DL (<200); GLOMERULAR FILTRATION RATE > 60.0 (>42); GLUCOSE, FASTING 213 MG/DL (74-106); HDL CHOLESTEROL 61.1 MG/DL (>40); LDL CHOLESTEROL 70.3 MG/DL (<100); NON-HDL-C 134.9 MG/DL; POTASSIUM SERUM 3.8 MMOL/L (3.5-5.1); SODIUM LEVEL 136 MMOL/L (136-145); TOTAL PROTEIN 6.8 G/DL (5.7-8.2); TRIGLYCERIDES LEVEL 323 MG/DL (<150)
[2022-12-05 10:51] LABS: FOLATE 13.89 NG/ML (>5.4); THYROID STIMULATING HORMONE 2.819 uIU/ML (0.55-4.78); TOTAL 25(OH) VITAMIN D 46.7 NG/ML (20.0-100.0)
[2022-12-05 10:52] LABS: VITAMIN B12 LEVEL 332 PG/ML (211-911)
[2022-12-05 10:59] LABS: MAU/CREAT RATIO 309.5 MCG/MG (0.0-30.0)
== END ==
LOC: M WUC 08:13
PROVIDERS: ATTEND Physician Assistant
DX: E11.69 Type 2 diabetes mellitus with other specified complication (principal); E66.9 Obesity, unspecified; E55.9 Vitamin D deficiency, unspecified; E78.2 Mixed hyperlipidemia

== ENCOUNTER → 2022-12-05 | Outpatient (CLI) | payer MEDICARE | LOC: M WUC 08:10 | PROVIDERS: ATTEND Urology | DX: Z12.5 Encounter for screening for malignant neoplasm of prostate (principal); E11.69 Type 2 diabetes mellitus with other specified complication; E66.9 Obesity, unspecified; E55.9 Vitamin D deficiency, unspecified; E78.2 Mixed hyperlipidemia | CPT/HCPCS: 36415; G0103 ==

== ENCOUNTER → 2022-12-21 | Outpatient (REF) | payer MEDICARE ==
[2022-12-21 13:52] LABS: BASO # 0.1 10^3/uL (0.0-0.2); BASO % 0.7 % (0.0-1.0); EOS # 0.1 10^3/uL (0.0-0.5); HEMATOCRIT 43.5 % (42.0-52.0); HEMOGLOBIN 14.4 g/dl (13.5-17.5); MEAN CORPUSCULAR HEMOGLOBIN 30.6 pg (27.0-33.0); MEAN CORPUSCULAR HGB CONC 33.1 g/dl (32.0-36.5); MEAN CORPUSCULAR VOLUME 92.6 fl (80.0-96.0); MONO # 0.7 10^3/uL (0.0-0.8); NEUTROPHILS # 9.3 10^3/uL (1.5-8.5); NEUTROPHILS % 75.7 % (36.0-66.0); PLATELET COUNT, AUTOMATED 262 10^3/uL (150-450); WHITE BLOOD COUNT 12.3 10^3/uL (4.0-10.0)
[2022-12-21 14:13] LABS: BLOOD UREA NITROGEN 14 MG/DL (9-23); CALCIUM LEVEL 9.2 MG/DL (8.3-10.6); CARBON DIOXIDE LEVEL 27 MMOL/L (20-31); CHLORIDE LEVEL 97 MMOL/L (98-107); CREATININE FOR GFR 0.82 MG/DL (0.70-1.30); GLOMERULAR FILTRATION RATE > 60.0 (>42); GLUCOSE, FASTING 274 MG/DL (74-106); POTASSIUM SERUM 3.7 MMOL/L (3.5-5.1); SODIUM LEVEL 134 MMOL/L (136-145)
== END ==
LOC: M SFHCLERA 12:18
PROVIDERS: ATTEND Student in an Organized Health Care Education/Training Program
DX: R19.7 Diarrhea, unspecified (principal)

== ENCOUNTER → 2023-01-31 | Outpatient (REF) | payer MEDICARE | LOC: M SMT 15:25 | PROVIDERS: ATTEND Urology | DX: C67.9 Malignant neoplasm of bladder, unspecified (principal) ==

== ENCOUNTER → 2023-05-05 | Outpatient (REF) | payer MEDICARE ==
[~2023-05-05] MED LIST changes: +DICL100G10 TOP; -DICL1GEL3 TOP
[2023-05-05 16:24] LABS: APPEARANCE, URINE HAZY (CLEAR); BACTERIA, URINE AUTO 1+ (NEGATIVE); BILIRUBIN, URINE AUTO NEGATIVE (NEGATIVE); BLOOD, URINE BLOOD NEGATIVE (NEGATIVE); COLOR, URINE YELLOW (YELLOW); GLUCOSE, URINE (UA) AUTO NEGATIVE (NEGATIVE); KETONE, URINE AUTO NEGATIVE (NEGATIVE); LEUKOCYTE ESTERASE, URINE AUTO 3+ (NEGATIVE); MUCUS, URINE SMALL (NEGATIVE); NITRITE, URINE AUTO NEGATIVE (NEGATIVE); PROTEIN, URINE AUTO NEGATIVE (NEGATIVE); RBC, URINE AUTO 17 /HPF (0-3); SPECIFIC GRAVITY URINE AUTO 1.014 (1.002-1.035); SQUAMOUS EPITHELIAL CELL UR AU 0 /HPF (0-6); UROBILINOGEN, URINE AUTO 0.2 mg/dL (0.0-2.0); WBC, URINE AUTO 131 /HPF (0-3)
== END ==
LOC: M SMT 16:03
PROVIDERS: ATTEND Urology
DX: N39.0 Urinary tract infection, site not specified (principal)

== ENCOUNTER → 2023-05-17 | Outpatient (REF) | payer MEDICARE ==
[2023-05-17 11:28] LABS: APPEARANCE, URINE CLEAR (CLEAR); BACTERIA, URINE AUTO 1+ (NEGATIVE); BILIRUBIN, URINE AUTO NEGATIVE (NEGATIVE); BLOOD, URINE BLOOD 2+ (NEGATIVE); COLOR, URINE YELLOW (YELLOW); GLUCOSE, URINE (UA) AUTO NEGATIVE (NEGATIVE); KETONE, URINE AUTO NEGATIVE (NEGATIVE); LEUKOCYTE ESTERASE, URINE AUTO 2+ (NEGATIVE); NITRITE, URINE AUTO NEGATIVE (NEGATIVE); PROTEIN, URINE AUTO 1+ mg/dL (NEGATIVE); RBC, URINE AUTO 47 /HPF (0-3); SQUAMOUS EPITHELIAL CELL UR AU 0 /HPF (0-6); UROBILINOGEN, URINE AUTO 0.2 mg/dL (0.0-2.0); WBC, URINE AUTO 43 /HPF (0-3)
== END ==
LOC: M SMT 09:52
PROVIDERS: ATTEND Urology
DX: N39.0 Urinary tract infection, site not specified (principal)

== ENCOUNTER → 2023-05-22 | Outpatient (REF) | payer MEDICARE | LOC: M SMT 09:55 | PROVIDERS: ATTEND Urology | DX: C67.9 Malignant neoplasm of bladder, unspecified (principal) ==

== ENCOUNTER → 2023-08-28 | Outpatient (REF) | payer MEDICARE | LOC: M SMT 09:45 | PROVIDERS: ATTEND Urology | DX: C67.9 Malignant neoplasm of bladder, unspecified (principal) ==

== ENCOUNTER → 2023-09-18 | Outpatient (CLI) | payer MEDICARE ==
[~2023-09-18] MED LIST changes: +ERGO500029 PO; +MYRB50TA PO; +ROSU10TA6 PO; +SEMA0.257; +SOLI10TA PO; +[UNRECOGNIZED DRUG - OTHER] PO
[2023-09-18 10:10] LABS: HEMATOCRIT 42.4 % (42.0-52.0); MEAN CORPUSCULAR HEMOGLOBIN 30.9 pg (27.0-33.0); MEAN CORPUSCULAR VOLUME 93.6 fl (80.0-96.0); PLATELET COUNT, AUTOMATED 244 10^3/uL (150-450); RED BLOOD COUNT 4.53 10^6/uL (4.30-6.10); WHITE BLOOD COUNT 10.9 10^3/uL (4.0-10.0)
[2023-09-18 10:47] LABS: CALCIUM LEVEL 9.4 MG/DL (8.3-10.6); CREATININE FOR GFR 1.32 MG/DL (0.70-1.30); GLOMERULAR FILTRATION RATE 56.9 (>42); POTASSIUM SERUM 4.3 MMOL/L (3.5-5.1)
[2023-09-19 16:52] LABS: HEMOGLOBIN A1c 9.1 % (4.0-6.0)
== END ==
LOC: M WUC 08:27
PROVIDERS: ATTEND Urology
DX: Z01.818 Encounter for other preprocedural examination (principal); C67.9 Malignant neoplasm of bladder, unspecified; Z79.899 Other long term (current) drug therapy

== ENCOUNTER 2023-09-27 09:14 | Day surgery (SDC) | payer MEDICARE ==
[~2023-09-27] VITALS: Ht 162.6 cm; Wt 89.4 kg
[~2023-09-27 09:14] MED LIST changes: +ceFAZolin SOD 2 GM in IV 1 EA IV ONE
[2023-09-27] MEDS: LR 1,000 ML IV SCH (09:56)
[2023-09-27] MEDS ORDERED: DEXTROSE 50% 50ML SYRINGE IV PRN ×2 (10:20→15:05)
[2023-09-27] MEDS ORDERED: GLUCAGON INJ 1MG VIAL SC PRN ×2 (10:20→15:05)
[2023-09-27] MEDS: INSULIN LISPRO (NovoLOG) PER UNIT SC PRN ×2 (10:30→15:09)
[2023-09-27] MEDS: INSULIN LISPRO (NovoLOG) PER UNIT SC ONE (11:14)
[2023-09-27] MEDS ORDERED: ROCURONIUM BROMIDE 50MG/5ML VIAL As Ordered ONE (11:22)
[2023-09-27] MEDS ORDERED: LIDOCAINE 2% 100MG/5ML SDV (FOR ANES.) As Ordered ONE (11:22)
[2023-09-27] MEDS ORDERED: ONDANSETRON 4MG 2ML VIAL As Ordered ONE (11:22)
[2023-09-27] MEDS ORDERED: propofoL 200 MG/20 ML VIAL As Ordered ONE (11:22)
[2023-09-27] MEDS ORDERED: fentaNYL 100 MCG/2 ML INJECTION As Ordered ONE (11:23)
[2023-09-27] MEDS ORDERED: MIDAZOLAM INJ 2MG/2ML VIAL As Ordered ONE (11:23)
[2023-09-27] MEDS ORDERED: LABETALOL 100MG/20ML VIAL As Ordered ONE (11:55)
[2023-09-27] MEDS ORDERED: SUGAMMADEX SODIUM 500 MG/5 ML VIAL (BRIDION) As Ordered ONE (12:08)
[2023-09-27] MEDS ORDERED: dexmedeTOMIDine (4MCG/ML)200MCG/50ML BTL (PRECEDEX) As Ordered ONE (12:08)
[2023-09-27] MEDS ORDERED: ACETAMINOPHEN 1000MG 100ML IV BAG As Ordered ONE (12:08)
[2023-09-27] MEDS ORDERED: METOCLOPRAMIDE INJ 10MG/2ML VIAL As Ordered ONE (12:08)
[2023-09-27] MEDS ORDERED: PHENYLephrine 500MCG 5ML (100MCG/ML) SYRINGE As Ordered ONE (12:51)
[2023-09-27] MEDS: ISOVUE-300 61% 100ML VIAL As Ordered ONE (13:05)
[2023-09-27] MEDS ORDERED: HYDROMORPHONE HCL 0.5 MG/ 0.5 ML SYRINGE IV PRN (13:30)
[2023-09-27] MEDS ORDERED: ONDANSETRON 4MG 2ML VIAL IV PRN (13:30)
[2023-09-27] MEDS ORDERED: fentaNYL 100 MCG/2 ML INJECTION IV PRN (13:30)
[2023-09-27] MEDS ORDERED: oxyCODONE 5MG TAB PO PRN (13:30)
[2023-09-27] MEDS ORDERED: LR 1,000 ML IV SCH (13:30)
[2023-09-27] MEDS ORDERED: GLUCOSE 4GM CHEW TABLET PO PRN (15:05)
[2023-09-27] MEDS ORDERED: PERCOCET 5MG/325MG TAB PO PRN (15:15)
[2023-09-27 15:25] VITALS: BP 122/76; TEMP 97.7; O2SAT 100
== END 2023-09-27 16:07 | disposition home or self-care (01) ==
LOC: M SDC 09:14
PROVIDERS: ATTEND Urology
DX: L92.9 Granulomatous disorder of the skin and subcutaneous tissue, unspecified (principal); N32.89 Other specified disorders of bladder; N13.1 Hydronephrosis with ureteral stricture, not elsewhere classified; E11.9 Type 2 diabetes mellitus without complications; Z87.891 Personal history of nicotine dependence; Z88.0 Allergy status to penicillin; Z88.5 Allergy status to narcotic agent; Z88.8 Allergy status to other drugs, medicaments and biological substances; Z91.048 Other nonmedicinal substance allergy status; Z79.899 Other long term (current) drug therapy
CPT/HCPCS: 52235; 52332; 76000; 88305; C2617; J0131; J1815; J1920; J2250; J2371; J2405; J2765; J3010; Q9967

== ENCOUNTER → 2023-10-16 | Outpatient (REF) | payer MEDICARE, OTHER ==
[~2023-10-16] MED LIST changes: -ceFAZolin SOD 2 GM in IV 1 EA IV ONE
[2023-10-16 12:24] LABS: APPEARANCE, URINE CLOUDY (CLEAR); BACTERIA, URINE AUTO 1+ (NEGATIVE); BILIRUBIN, URINE AUTO NEGATIVE (NEGATIVE); BLOOD, URINE BLOOD 3+ (NEGATIVE); COLOR, URINE YELLOW (YELLOW); GLUCOSE, URINE (UA) AUTO NEGATIVE (NEGATIVE); KETONE, URINE AUTO NEGATIVE (NEGATIVE); LEUKOCYTE ESTERASE, URINE AUTO 3+ (NEGATIVE); NITRITE, URINE AUTO NEGATIVE (NEGATIVE); PROTEIN, URINE AUTO 2+ mg/dL (NEGATIVE); RBC, URINE AUTO TNTC /HPF (0-3); SPECIFIC GRAVITY URINE AUTO 1.017 (1.002-1.035); SQUAMOUS EPITHELIAL CELL UR AU 0 /HPF (0-6); UROBILINOGEN, URINE AUTO 0.2 mg/dL (0.0-2.0); WBC, URINE AUTO TNTC /HPF (0-3)
== END ==
LOC: M SMT 10:09
PROVIDERS: ATTEND Physician Assistant
DX: R30.0 Dysuria (principal)

== ENCOUNTER → 2023-10-24 | Outpatient (REF) | payer MEDICARE, OTHER ==
[2023-10-24 18:11] LABS: APPEARANCE, URINE MANUAL HAZY (CLEAR); COLOR, URINE MANUAL ORANGE (YELLOW)
[2023-10-24 18:12] LABS: GLUCOSE, URINE (UA) MANUAL 1+(100 MG/DL) mg/dL (NEGATIVE); KETONE, URINE MANUAL NEGATIVE (NEGATIVE); PROTEIN, URINE MANUAL OBSCURED mg/dL (NEGATIVE)
[2023-10-24 18:13] LABS: BILIRUBIN, URINE MANUAL OBSCURED (NEGATIVE); BLOOD URINE MANUAL POSITIVE (NEGATIVE); LEUKOCYTE ESTERASE, URINE MAN OBSCURED (NEGATIVE); NITRITE, URINE MANUAL OBSCURED (NEGATIVE); UROBILINOGEN, URINE MANUAL OBSCURED mg/dl (NORMAL)
[2023-10-24 18:19] LABS: RBC, URINE 20-30 /hpf (0-3)
[2023-10-24 18:21] LABS: BACTERIA, URINE SMALL AMOUNT; HYALINE CAST, URINE NONE SEEN /lpf (0-1); SQUAMOUS EPITHELIAL CELL URINE SMALL AMOUNT /hpf (SMALL AMT)
== END ==
LOC: M SMT 16:57
PROVIDERS: ATTEND Physician Assistant
DX: R30.0 Dysuria (principal)

== ENCOUNTER → 2023-11-28 | Outpatient (CLI) | payer MEDICARE ==
[~2023-11-28] MED LIST changes: -ROSU10TA6 PO; +ROSU10TA61 PO
== END ==
LOC: M RAD 10:23
PROVIDERS: ATTEND Urology
DX: N13.5 Crossing vessel and stricture of ureter without hydronephrosis (principal)

== ENCOUNTER → 2024-01-08 | Outpatient (CLI) | payer MEDICARE ==
[~2024-01-08] MED LIST changes: +ONDA-282 PO; -ONDA4TAB6 PO
== END ==
LOC: M PLAIMG 08:21
PROVIDERS: ATTEND Family Medicine
DX: R01.1 Cardiac murmur, unspecified (principal)

== ENCOUNTER → 2024-02-19 | Outpatient (REF) | payer MEDICARE, OTHER | LOC: M SMT 13:08 | PROVIDERS: ATTEND Urology | DX: C67.9 Malignant neoplasm of bladder, unspecified (principal) ==

== ENCOUNTER → 2024-05-09 | Outpatient (REF) | payer OTHER ==
[2024-05-09 17:54] LABS: ALBUMIN 3.8 G/DL (3.2-5.2); ALKALINE PHOSPHATASE 89 U/L (46-116); ALT/SGPT 81 U/L (7.0-40); AST/SGOT 49 U/L (<34); BILIRUBIN,TOTAL 0.6 MG/DL (0.3-1.2); BLOOD UREA NITROGEN 19 MG/DL (9-23); CALCIUM LEVEL 9.9 MG/DL (8.3-10.6); CARBON DIOXIDE LEVEL 29 MMOL/L (20-31); CHLORIDE LEVEL 102 MMOL/L (98-107); CREATININE FOR GFR 1.21 MG/DL (0.70-1.30); GLOMERULAR FILTRATION RATE > 60.0 (>42); GLUCOSE, FASTING 182 MG/DL (74-106); POTASSIUM SERUM 4.6 MMOL/L (3.5-5.1); SODIUM LEVEL 136 MMOL/L (136-145); TOTAL PROTEIN 7.4 G/DL (5.7-8.2)
[2024-05-09 19:01] LABS: HEMOGLOBIN A1c 8.4 % (4.0-6.0)
== END ==
LOC: M SFHCLERA 09:39
PROVIDERS: ATTEND Family Medicine
DX: E11.69 Type 2 diabetes mellitus with other specified complication (principal)

== ENCOUNTER → 2024-08-23 | Outpatient (REF) | payer MEDICARE, OTHER | LOC: M SMT 16:59 | PROVIDERS: ATTEND Urology | DX: C67.9 Malignant neoplasm of bladder, unspecified (principal) ==

== ENCOUNTER → 2024-09-23 | Outpatient (CLI) | payer MEDICARE ==
[~2024-09-23] MED LIST changes: +VANC125C13 PO; -VANC125C3 PO
[2024-09-23 13:23] LABS: ALBUMIN 3.6 G/DL (3.2-5.2); ALKALINE PHOSPHATASE 86 U/L (40-129); ALT/SGPT 46 U/L (7.0-40); AST/SGOT 30 U/L (<34); BILIRUBIN,TOTAL 0.6 MG/DL (0.3-1.2); BLOOD UREA NITROGEN 18 MG/DL (9-23); CALCIUM LEVEL 9.2 MG/DL (8.3-10.6); CARBON DIOXIDE LEVEL 28 MMOL/L (20-31); CHLORIDE LEVEL 103 MMOL/L (98-107); CHOLESTEROL LEVEL 198 MG/DL (<200); CHOLESTEROL RISK RATIO 3.34 (<5); CREATININE FOR GFR 1.17 MG/DL (0.70-1.30); GLOMERULAR FILTRATION RATE > 60.0 (>42); GLUCOSE, FASTING 157 MG/DL (74-106); HDL CHOLESTEROL 59.2 MG/DL (>40); LDL CHOLESTEROL 108.2 MG/DL (<100); NON-HDL-C 138.8 MG/DL; POTASSIUM SERUM 4.7 MMOL/L (3.5-5.1); SODIUM LEVEL 140 MMOL/L (136-145); TOTAL PROTEIN 7.3 G/DL (5.7-8.2); TRIGLYCERIDES LEVEL 153 MG/DL (<150)
[2024-09-23 13:35] LABS: HEMOGLOBIN A1c 7.4 % (4.0-6.0)
== END ==
LOC: M WUC 10:45
PROVIDERS: ATTEND Family Medicine
DX: E78.2 Mixed hyperlipidemia (principal); E11.65 Type 2 diabetes mellitus with hyperglycemia

== ENCOUNTER 2024-10-19 12:35 | Emergency (ER) | payer MEDICARE ==
[~2024-10-19] VITALS: Ht 162.6 cm; Wt 87.6 kg
[2024-10-19 12:40] VITALS: BP 149/73; TEMP 97.8; O2SAT 96
[2024-10-19] MEDS ORDERED: SEMA1PEN2 (12:57)
[2024-10-19] MEDS ORDERED: ZOLP10TA2 (12:57)
[2024-10-19] MEDS ORDERED: GLIP2.5T52 (12:57)
[2024-10-19] MEDS ORDERED: MIRA50TA2 (12:57)
[2024-10-19] MEDS: NORCO, ANEXSIA 5/325MG TABLET (HYDROcodone/ACETAMINOPHEN) PO ONE (17:12)
[2024-10-19] MEDS: BOOSTRIX VACCINE (TETANUS/DIPHTH/ACEL. PERTUSSIS) 0.5ML SYR IM ONE (17:19)
[2024-10-19] MEDS ORDERED: HYDR-3713 PO (17:28)
[2024-10-19] MEDS ORDERED: CEPH500C PO (19:30)
== END 2024-10-19 17:36 | disposition home or self-care (01) ==
LOC: M ED 12:35
DX: S61.211A Laceration without foreign body of left index finger without damage to nail, initial encounter (principal); Y92.9 Unspecified place or not applicable; Y93.9 Activity, unspecified; Y99.9 Unspecified external cause status; E55.9 Vitamin D deficiency, unspecified; E11.9 Type 2 diabetes mellitus without complications; I10 Essential (primary) hypertension; F10.10 Alcohol abuse, uncomplicated; Z88.1 Allergy status to other antibiotic agents; Z88.5 Allergy status to narcotic agent; Z88.8 Allergy status to other drugs, medicaments and biological substances; Z91.048 Other nonmedicinal substance allergy status; Z79.1 Long term (current) use of non-steroidal anti-inflammatories (NSAID); Z79.4 Long term (current) use of insulin; Z79.899 Other long term (current) drug therapy; Z23 Encounter for immunization

== ENCOUNTER → 2025-02-21 | Outpatient (CLI) | payer MEDICARE ==
[~2025-02-21] MED LIST changes: -AMBI10TA PO; +CEPH500C PO; -FLOM0.4C39 PO; +GLIP2.5T52; +HYDR-3713 PO; +MIRA50TA2; +SEMA1PEN2; +TAMS-18 PO; +ZOLP-533 PO; +ZOLP10TA2
[2025-02-21 12:08] LABS: BASO # 0.1 10^3/uL (0.0-0.2); BASO % 0.9 % (0.0-1.0); EOS # 0.2 10^3/uL (0.0-0.5); EOS % 2.2 % (0.0-3.0); LYMPH # 2.1 10^3/uL (1.5-5.0); LYMPH % 21.6 % (24.0-44.0); MONO # 0.7 10^3/uL (0.0-0.8); MONO % 7.4 % (2.0-8.0); NEUTROPHILS # 6.4 10^3/uL (1.5-8.5); NEUTROPHILS % 67.2 % (36.0-66.0); PLATELET COUNT, AUTOMATED 244 10^3/uL (150-450)
[2025-02-21 12:10] LABS: ALT/SGPT 41.0 U/L (7.0-40); AST/SGOT 33.0 U/L (<34); CALCIUM LEVEL 9.6 MG/DL (8.3-10.6); CARBON DIOXIDE LEVEL 30.0 MMOL/L (20-31); CHLORIDE LEVEL 99.0 MMOL/L (98-107); CREATININE FOR GFR 1.29 MG/DL (0.70-1.30); GLOMERULAR FILTRATION RATE 58.6 (>42); POTASSIUM SERUM 4.2 MMOL/L (3.5-5.1); SODIUM LEVEL 138.0 MMOL/L (136-145)
[2025-02-21 12:23] LABS: CREATININE, URINE 102.6 MG/DL; MALB URINE SIEMENS 49.0 MG/L; MAU/CREAT RATIO 47.7 MCG/MG (0.0-30.0)
[2025-02-21 12:50] LABS: ESTIMATED AVERAGE GLUCOSE 194.0 MG/DL (60-110)
== END ==
LOC: M WUC 08:25
PROVIDERS: ATTEND Family Medicine
DX: Z00.00 Encounter for general adult medical examination without abnormal findings (principal); E11.65 Type 2 diabetes mellitus with hyperglycemia